=== PATIENT | female | born 1960 | race Caucasian/White ===

== ENCOUNTER → 2017-11-25 | Outpatient (CLI) | payer OTHER ==
--- NOTE | 2017-11-25 16:37 | CT ---
EXAMINATION TYPE: CT chest w con DATE OF EXAM: 11/25/2017 COMPARISON: 07/01/2017 HISTORY: Patient complains of cough at time of exam. Follow up for known lung nodules with history o f lung CA., History of breast cancer. CT DLP: 444.3 mGycm, Automated exposure control for dose reduction was used. CONTRAST: Performed injected with 100 mL of Isovue 300. TECHNIQUE: Axial images were obtained at 5 mm thick sections. Reconstructed images are reviewed on Ondax computer in the coronal plane. FINDINGS: Portion of the thyroid visualized is normal. No suspicious lung nodules or focal infiltrates are present. There is a minimal pneumonitis previousl y reported to have diminished over the interval. Suspicious interval growth of mass is not identified . No enlarged mediastinal or hilar adenopathy is evident. The ascending aorta diameter at the level o f the main pulmonary artery is 3.3 cm. The main pulmonary artery diameter at the bifurcation is 2.[address] sections are obtained through the upper abdomen. Abdomen is essentially unremarkable. Note is made of a splenule at the splenic hilum. Spondylosis is present. No suspicious lytic or sclerotic lesions are identified. IMPRESSIONS: 1. No suspicious areas suggestive for metastatic disease.
== END | disposition home or self-care (01) ==
LOC: RADCTMAIN 15:51
PROVIDERS: ATTEND Internal Medicine Hematology & Oncology
DX: C50.411 Malignant neoplasm of upper-outer quadrant of right female breast (principal); Z88.0 Allergy status to penicillin; Z88.1 Allergy status to other antibiotic agents
CPT/HCPCS: 71260; Q9967

== ENCOUNTER 2018-01-02 06:01 | Day surgery (SDC) | payer OTHER ==
[2017-12-31 11:50] VITALS: BMI 47.6
[~2018-01-02 06:01] MED LIST: DEXAMETHASONE SOD PHOSPHATE 10 MG/ML 1 ML VIAL IV ONE; HEPARIN SODIUM,PORCINE 5,000 UNIT/ML 1 ML VIAL SQ ONE; LACTATED RINGERS 1,000 ML IV SCH; LIDOCAINE 1% 20 ML VIAL (10MG/ML) FOR IV START INTRADERMA PRN; MIDAZOLAM 2 MG/2 ML VIAL IV PRN; MORPHINE SULFATE 4 MG/ML SYRINGE IV PRN; ONDANSETRON 4 MG/2 ML VIAL IVP ONE; SCOPOLAMINE 1.5MG/72HR PATCH TRANSDERM ONE; ceFAZolin IN SWFI 2 GM/20 ML SYRINGE IVP ONE
[2018-01-02 06:27] VITALS: RESP 16; TEMP 98.6
--- NOTE | 2018-01-02 07:41 | P.GSHP ---
History of Present Illness H&P Date: 01/02/18 Chief Complaint: Breast cancer Patient here to have her Port-A-Cath removed. She has completed therapy for breast cancer. The port was actually placed in [place]. She had no issues with port during that time. Past Medical History Past Medical History: Cancer, Hypertension, Osteoarthritis (OA), Thyroid Disorder Additional Past Medical History / Comment(s): BREAST CANCER History of Any Multi-Drug Resistant Organisms: None Reported Past Surgical History: Appendectomy, Breast Surgery, Cardiac Ablation, Section, Cholecystectomy Additional Past Surgical History / Comment(s): RIGHT LUMPECTOMY, RIGHT OVARY REMOVED , C SECTIONB X2 , PORT A CATH Past Anesthesia/Blood Transfusion Reactions: Postoperative Nausea & Vomiting ( PONV) Smoking Status: Former smoker - Past Family History Mother Family Medical History: No Reported History Medications and Allergies Home Medications Medication Instructions Recorded Confirmed Type Alendronate Sodium 70 mg PO TU 12/31/17 01/02/18 History Anastrozole [Arimidex] 1 mg PO DAILY 12/31/17 01/02/18 History Calcium Carbonate/Vitamin D3 2 each PO DAILY 12/31/17 01/02/18 History [Calcium 600-Vit D3 200 Tablet] Ergocalciferol (Vitamin D2) 50,000 unit PO TU 12/31/17 01/02/18 History [Vitamin D2] Ibuprofen [Motrin] 800 mg PO TID PRN 12/31/17 12/31/17 History LORazepam [Ativan] 1 mg PO HS PRN 12/31/17 01/02/18 History Levothyroxine Sodium [Synthroid] 75 mcg PO DAILY 12/31/17 01/02/18 History Lisinopril [Zestril] 10 mg PO DAILY 12/31/17 01/02/18 History Metoprolol Tartrate [Lopressor] 50 mg PO HS 12/31/17 01/02/18 History Oxybutynin Chloride [Ditropan] 5 mg PO DAILY 12/31/17 01/02/18 History Allergies Allergy/AdvReac Type Severity Reaction Status Date / Time ciprofloxacin [From Cipro] Allergy Rash/Hives Verified 01/02/18 06:14 Penicillins Allergy ANEMIA,JAUNDICE, Verified 01/02/18 06:14 LOW BLOOD COUNT Surgical - Exam Vital Signs Temp Pulse Resp BP Pulse Ox 98.6 F 65 16 117/72 96 01/02/18 06:25 01/02/18 06:25 01/02/18 06:25 01/02/18 06:25 01/02/18 06:25 Physical exam: General: Well-developed, well-nourished HEENT: Normocephalic, sclerae nonicteric Abdomen: Nontender, nondistended Extremities: No edema, left infraclavicular port noted Neuro: Alert and oriented Assessment and Plan (1) Breast cancer Narrative/Plan: Will proceed with Port-A-Cath removal at this time. Current Visit: Yes Status: Acute Code(s): C50.919 - MALIGNANT NEOPLASM OF UNSP SITE OF UNSPECIFIED FEMALE BREAST SNOMED Code(s): 461173285
[2018-01-02] MEDS ORDERED: KETAMINE 10 MG/ML 20 ML VIAL ONE (08:07)
[2018-01-02] MEDS ORDERED: MIDAZOLAM 2 MG/2 ML VIAL ONE (08:07)
[2018-01-02] MEDS ORDERED: fentaNYL (PF) 50 MCG/ML 2 ML AMP ONE (08:07)
[2018-01-02] MEDS ORDERED: PROPOFOL 10 MG/ML 20 ML VIAL IV ONE (08:07)
[2018-01-02] MEDS ORDERED: CLINDAMYCIN 150 MG/ML 4 ML VIAL IVPB ONE (08:10)
[2018-01-02] MEDS ORDERED: LIDOCAINE 1% (PF) 10 MG/ML (30 ML SDV) SQ ONE ×2 (08:14→08:30)
[2018-01-02] MEDS ORDERED: NALOXONE 0.4 MG/ML 1 ML VIAL IV PRN (08:41)
[2018-01-02] MEDS ORDERED: HYDROcodone/APAP 5-325MG 1 EACH TAB PO PRN (08:41)
--- NOTE | 2018-01-02 08:42 | P.OP ---
Date of Procedure: 01/02/18 Procedure(s) Performed: PREOPERATIVE DIAGNOSIS: Breast cancer POSTOPERATIVE DIAGNOSIS: Same PROCEDURE: Port-A-Cath removal SURGEON: Rita EBL: Minimal ANESTHESIA: Sedation COMPLICATIONS: None OPERATIVE PROCEDURE: Patient was placed in the supine position. The patient was sedated per anesthesia that time. The chest was prepped and draped in the usual sterile fashion. The skin was localized with Marcaine solution. The previous incision was re-incised using a scalpel. The port was easily excised using accommodation of blunt dissection sharp dissection and electrocautery. The subcutaneous tissues were reapproximated using 3-0 Vicryl sutures. The skin was reapproximated using 4-0 Monocryl sutures. Steri-Strips and sterile dressings were then applied. DISPOSITION: Stable to recovery room
[2018-01-02 09:20] VITALS: BP 103/63; PULSE 66
== END 2018-01-02 09:50 | disposition home or self-care (01) ==
LOC: OR 06:01
PROVIDERS: ATTEND Surgery
DX: C50.919 Malignant neoplasm of unspecified site of unspecified female breast (principal); E07.9 Disorder of thyroid, unspecified; I10 Essential (primary) hypertension; M19.90 Unspecified osteoarthritis, unspecified site; Z87.891 Personal history of nicotine dependence; F41.9 Anxiety disorder, unspecified; Z79.83 Long term (current) use of bisphosphonates; Z79.811 Long term (current) use of aromatase inhibitors; Z79.899 Other long term (current) drug therapy; Z88.0 Allergy status to penicillin; Z88.1 Allergy status to other antibiotic agents; Z85.3 Personal history of malignant neoplasm of breast
CPT/HCPCS: 36590; J2250; J1644; J1100; J2405; J2001; J3010; J2704

== ENCOUNTER 2018-02-18 11:49 | Day surgery (SDC) | payer OTHER ==
[2018-02-12 14:30] VITALS: BMI 43.2
--- NOTE | 2018-02-18 08:48 | HP ---
HISTORY AND PHYSICAL CHIEF COMPLAINT: Right knee pain. 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 She notes intermittent locking and giving way. She has had swelling and stiffness. She has tried medications in addition to therapy without much relief. PAST MEDICAL HISTORY: Significant for breast cancer, hypertension, and hypothyroidism. PAST SURGICAL HISTORY: Significant for appendectomy, , cholecystectomy. CURRENT MEDICATIONS: 1. Anastrozole. 2. Ibuprofen. 3. Levoxyl. 4. Lisinopril. 5. Metoprolol. She notes allergies to PENICILLIN and CIPROFLOXACIN. FAMILY HISTORY: Negative. SOCIAL HISTORY: Negative for current tobacco or alcohol use. REVIEW OF SYSTEMS: A 16 point review of systems significant for multiple joint pain. PHYSICAL EXAMINATION: The patient is approximately 4 foot 9, 223 pounds of endomorphic habitus. HEENT exam is nonfocal. Neck is supple. She has painless passive motion of her right hip. Straight leg raise is negative. Active motion right knee -6 to 105 degrees of flexion. She is tender about the medial joint line. She has mild effusion. Collaterals are stable, Tiana is negative, Pa's elicits medial pain. She does have genu varum alignment. Her distal neurovascular exam appears intact in the right lower extremity. Weightbearing notch lateral and Merchant views of the right knee obtained in the office show moderate medial compartment narrowing. IMPRESSION: 1. Right knee internal derangement with symptomatic medial meniscal tear. 2. Right knee medial compartment degenerative joint disease. 3. Increased body mass index. 4. History of breast cancer. RECOMMENDATIONS: I talked to the patient at length regarding her condition and treatment options. At this point, she remains quite symptomatic despite attempts at conservative measures. After a thorough discussion, she opts to proceed with surgery. We will plan to proceed with arthroscopic evaluation with probable partial medial meniscectomy in addition to possible medial femoral chondrectomy. Risks and benefits were discussed at length in layman's terms. We will likely perform that as an outpatient procedure. MMODL / IJN: [id number] /
[~2018-02-18 11:49] MED LIST changes: -DEXAMETHASONE SOD PHOSPHATE 10 MG/ML 1 ML VIAL IV ONE; -HEPARIN SODIUM,PORCINE 5,000 UNIT/ML 1 ML VIAL SQ ONE; -LACTATED RINGERS 1,000 ML IV SCH; -LIDOCAINE 1% 20 ML VIAL (10MG/ML) FOR IV START INTRADERMA PRN; -MIDAZOLAM 2 MG/2 ML VIAL IV PRN; -MORPHINE SULFATE 4 MG/ML SYRINGE IV PRN; -ONDANSETRON 4 MG/2 ML VIAL IVP ONE; -SCOPOLAMINE 1.5MG/72HR PATCH TRANSDERM ONE
[2018-02-18] MEDS ORDERED: LACTATED RINGERS 1,000 ML IV SCH (12:07)
[2018-02-18] MEDS ORDERED: DEXAMETHASONE SOD PHOSPHATE 10 MG/ML 1 ML VIAL IV ONE (12:07)
[2018-02-18] MEDS ORDERED: ONDANSETRON 4 MG/2 ML VIAL IVP ONE (12:07)
[2018-02-18] MEDS ORDERED: LIDOCAINE 1% 20 ML VIAL (10MG/ML) FOR IV START INTRADERMA ONE (12:55)
[2018-02-18] MEDS ORDERED: PROPOFOL 10 MG/ML 20 ML VIAL IV ONE (12:59)
[2018-02-18] MEDS ORDERED: SUCCINYLCHOLINE CHLORIDE 100 MG/5 ML SYR IV ONE (12:59)
[2018-02-18] MEDS ORDERED: fentaNYL (PF) 50 MCG/ML 2 ML AMP ONE (12:59)
[2018-02-18] MEDS ORDERED: MIDAZOLAM 2 MG/2 ML VIAL ONE (12:59)
[2018-02-18] MEDS ORDERED: LIDOCAINE 1% INJ 10MG/ML (20 ML MDV) ONE (12:59)
--- NOTE | 2018-02-18 14:04 | P.OP ---
Date of Procedure: 02/18/18 Preoperative Diagnosis: Right knee internal derangement Postoperative Diagnosis: Right knee posterior medial meniscal tear/grade 3 chondral injury distal medial femoral condyle/grade 3 chondral injury medial patella facet Procedure(s) Performed: Right knee arthroscopic partial medial meniscectomy/medial femoral chondrectomy/ patellar chondroplasty Anesthesia: LUIS ENRIQUE Surgeon: Richy Dailey Estimated Blood Loss (ml): 10 Pathology: none sent Condition: stable Disposition: PACU Indications for Procedure: The patient's a 57-year-old female who presents with persistent right knee pain and mechanical symptoms despite adequate conservative measures. A discussion of the risks and benefits of operative intervention versus continued conservative measures was made with patient. She opted to proceed with surgery. Operative risks to include infection, neurovascular injury, development of blood clots, possible incomplete resolution of symptoms, possible worsening symptoms and need for subsequent procedures was discussed. Informed consent was obtained. Operative Findings: As below Description of Procedure: The patient was brought to the operating room, and after induction of general anesthesia examined the right knee. Collaterals were stable, Tiana was negative, and posterior drawer was negative. The right lower extremity was prepped and draped in normal fashion. A superior lateral portal was made through a 3 mm skin incision superior and lateral to the patella. This was used for outflow. A moderate effusion was encountered. A lateral portal was made through a 5 mm vertical skin incision lateral to the patella tendon above the joint line. Diagnostic arthroscopy was performed. A medial portals made through a similar incision medial to the patella tendon above the joint line. On inspection of the medial compartment, a complex tear involving the posterior horn of the medial meniscus was noted in the white-white junction. This was debrided back to stable base with straight baskets and a motorized shaver. Grade 2-3 chondral changes were noted diffusely in the medial compartment. There was a grade 3 chondral defect involving the central distal portion medial femoral condyle with a loose chondral fragment. This was debrided back to stable base with a motorized shaver. On inspection of the notch, the anterior cruciate ligament appeared to be intact. On inspection of the lateral compartment, minimal degenerative changes were noted in the meniscus appeared intact. On inspection patellofemoral articulation, grade 3 chondral injury involving medial patella facet was noted. The loose chondral fragment was debrided back to a stable base with a motorized shaver. The gutters were clear debris. The knee was then thoroughly irrigated. The portals were closed with Steri-Strips. A sterile dressing was applied in addition to a compression stocking. The patient was then awoken from general anesthesia and transferred to recovery room in good condition. Blood loss was estimated at 10 mL. No complications were incurred.
[2018-02-18 14:07] VITALS: RESP 16; TEMP 97.4
[2018-02-18] MEDS: MORPHINE SULFATE 4 MG/ML SYRINGE IVP ONE ×2 (14:27→14:32)
[2018-02-18] MEDS: HYDROmorphone 0.5 MG/0.5 ML SYRINGE IVP PRN ×2 (14:41→14:46)
[2018-02-18] MEDS ORDERED: PROMETHAZINE INJ 25 MG/ML 1 ML VIAL IVPB ONE (15:16)
[2018-02-18 15:32] VITALS: BP 123/79; PULSE 61
== END 2018-02-18 16:37 | disposition home or self-care (01) ==
LOC: OR 11:49
PROVIDERS: ATTEND Orthopaedic Surgery
DX: S83.241A Other tear of medial meniscus, current injury, right knee, initial encounter (principal); S89.91XA Unspecified injury of right lower leg, initial encounter; X58.XXXA Exposure to other specified factors, initial encounter; I10 Essential (primary) hypertension; E03.9 Hypothyroidism, unspecified; Z85.3 Personal history of malignant neoplasm of breast; E66.01 Morbid (severe) obesity due to excess calories; Z68.41 Body mass index [BMI] 40.0-44.9, adult; Z79.811 Long term (current) use of aromatase inhibitors; Z79.890 Hormone replacement therapy; Z79.1 Long term (current) use of non-steroidal anti-inflammatories (NSAID); Z79.899 Other long term (current) drug therapy; Z88.1 Allergy status to other antibiotic agents; Z88.0 Allergy status to penicillin
CPT/HCPCS: 29881; J2270; J1100; J2550; J2405; J1170; J0690

== ENCOUNTER → 2018-04-14 | Outpatient (CLI) | payer OTHER ==
--- NOTE | 2018-04-14 10:05 | BD ---
EXAMINATION TYPE: Axial Bone Density DATE OF EXAM: 04/14/2018 CLINICAL HISTORY: Postmenopausal with hormonal replacement therapy Height: 56.5 inches Weight: 227 pounds FRAX RISK QUESTIONS: Alcohol (3 or more units per day): no Family History (Parent hip fracture): no Glucocorticoids (More than 3mos): inhaler not used on regular basis (Ex: prednisone, prednisolone, methylprednisolone, dexamethasone, and hydrocortisone). History of Fracture in Adulthood: unsure, possibly ankle Secondary Osteoporosis: 1. Type 1 Diabetes: no 2. Hyperthyroidism: unsure 3. Menopause before 45: no 4. Malnutrition: no 5. Chronic liver disease: no Rheumatoid Arthritis: no Current Tobacco Use: no RISK FACTORS HISTORY OF: Family History of Osteoporosis: no Active: yes Diet low in dairy products/other sources of calcium: possibly one serving a day Postmenopausal woman: yes Take estrogen and/or progesterone medications: no Lost more than 2 inches in height since high school: unsure Frequent falls: no Poor Health: somewhat Hyperparathyroidism: no Adrenal Insufficiency: no MEDICATIONS: Prednisone or other steroids: inhaler not used on regular basis How Long: off & on Thyroid Medications: yes Which medication: unsure How Long: off & on -15-17 years Osteoporosis Medications: yes Which medication: unsure How Long: since breast CA diagnosis 2 years ago Additional Medications: calcium & Vitamin D ; hormone lorelei Additional History: hx breast CA; "fatty liver" EXAM MEASUREMENTS: Bone mineral densitometry was performed using the Lorena Gaxiola System. Bone mineral density as measured about the Lumbar spine is: ----- L1-L4(G/cm2): 1.222 T Score Values are as follows: ----- L2: 0.4 ----- L3: 0.0 ----- L4: 0.3 ----- L1-L4: 0.3 Bone mineral density not previously done at this facility; done elsewhere Bone mineral density about the R hip (g/cm2): 0.851 Bone mineral density about the L hip (g/cm2): 0.828 T Score values are as follows: -----R Neck: -1.3 -----L Neck: -1.5 -----R Total: -0.5 -----L Total: -0.3 Bone mineral density not previously done at this facility; done elsewhere IMPRESSION: Osteopenia (T Score between -2.5 and -1). There is slightly increased risk of fracture and the patient may be considered for treatment. Re-Screen 2-5 years. NOTE: T-SCORE=SD OF THE YOUNG ADULT MEAN.
== END | disposition home or self-care (01) ==
LOC: RADBDWWP 07:21
PROVIDERS: ATTEND Internal Medicine Hematology & Oncology
DX: C50.411 Malignant neoplasm of upper-outer quadrant of right female breast (principal); M85.80 Other specified disorders of bone density and structure, unspecified site; Z88.1 Allergy status to other antibiotic agents; Z88.0 Allergy status to penicillin; Z79.890 Hormone replacement therapy; Z78.0 Asymptomatic menopausal state
CPT/HCPCS: 77080

== ENCOUNTER → 2018-07-07 | Outpatient (CLI) | payer OTHER ==
--- NOTE | 2018-07-08 14:06 | MR ---
EXAMINATION TYPE: MR knee LT wo con DATE OF EXAM: 07/07/2018 COMPARISON: Outside radiographs of the left knee dated 06/11/2018 HISTORY: Left knee pain TECHNIQUE: Multiplanar, multisequence imaging of the left knee is performed without IV contrast. FINDINGS: MEDIAL MENISCUS: There is a small radial tear of the free edge of the posterior horn of the medial me niscus with blunting near the root. The anterior horn and meniscal body appear intact. There is assoc iated 1 to 2 mm meniscal extrusion with no parameniscal cyst. LATERAL MENISCUS: There is increased signal of the anterior horn of the lateral meniscus extending to the anterior root indicative of meniscal degeneration as there is no continuity with an articular zapata rface. CRUCIATE LIGAMENTS: The posterior cruciate ligament is intact. There are only diminutive high signal fibers of the anterior cruciate ligament remaining although they maintain a normal orientation. COLLATERAL LIGAMENTS: Minimal high signal is seen superficial to the medial collateral ligament sugge stive of mild medial collateral ligament bursitis. EXTENSOR MECHANISM: Visualized quadriceps and patellar tendons are intact. EFFUSION: There is a small suprapatellar joint effusion with a frond-like intra-articular region of villous protuberance suggesting lipoma arborescens. Given the appearance small complex joint effusion with synovitis is considered less likely. POPLITEAL CYST: No popliteal/mccann cyst. TRICOMPARTMENT SPACES/CARTILAGE: Evaluation of the medial lateral compartment cartilage is somewhat l imited given spatial resolution is decreased due to patient body habitus. There is only mild signal h eterogeneity of the patellofemoral cartilage without focal defect. There appears to be medial joint s pace narrowing and at least a 4 mm partial-thickness chondral defect of the weightbearing surface of the medial femoral condyle at its anterior margin with other generalized medial compartment cartilagi nous thinning. Lateral compartment cartilage is grossly unremarkable although limited as described ab ove. BONE MARROW SIGNAL: No focal abnormal marrow signal is appreciated. IMPRESSION: 1. Small radial tear of the posterior horn of the medial meniscus with 1 to 2 mm associated meniscal extrusion. 2. Partial-thickness anterior cruciate ligament tear and high-grade sprain with high signal throughou t the remaining fibers. 3. Findings suggesting lipoma arborescens versus less likely small complex joint effusion with synovi tis. 4. Myxoid degeneration of the lateral meniscus. 5. Mild signal superficial to the medial collateral ligament without medial collateral ligament disco ntinuity compatible with mild MCL bursitis.
== END | disposition home or self-care (01) ==
LOC: RADMRIMAIN 12:59
PROVIDERS: ATTEND Orthopaedic Surgery
DX: S83.242A Other tear of medial meniscus, current injury, left knee, initial encounter (principal); S83.512A Sprain of anterior cruciate ligament of left knee, initial encounter

== ENCOUNTER → 2018-07-28 | Outpatient (CLI) | payer OTHER ==
[2018-07-28 17:47] LABS: Basophils # (A) 0.1 k/uL (0-0.2); Basophils % (A) 1 %; Eosinophils # (A) 0.4 k/uL (0-0.7); Eosinophils % (A) 5 %; HCT 40.2 % (34.0-46.0); HGB 13.3 gm/dL (11.4-16.0); Lymphocytes # (A) 1.2 k/uL (1.0-4.8); Lymphocytes % (A) 16 %; MCH 30.2 pg (25.0-35.0); MCV 91.6 fL (80.0-100.0); Mean Platelet Volume 7.3; Monocytes # (A) 0.3 k/uL (0-1.0); Monocytes % (A) 5 %; Neutrophils # (A) 5.5 k/uL (1.3-7.7); Neutrophils % (A) 73 %; Platelet Count 325 k/uL (150-450); RBC 4.39 m/uL (3.80-5.40); RDW 13.6 % (11.5-15.5); WBC 7.5 k/uL (3.8-10.6)
[2018-07-28 17:52] LABS: Potassium 4.1 mmol/L (3.5-5.1)
== END | disposition home or self-care (01) ==
LOC: LABPAT 17:20
PROVIDERS: ATTEND Orthopaedic Surgery
DX: Z01.812 Encounter for preprocedural laboratory examination (principal); M23.92 Unspecified internal derangement of left knee
CPT/HCPCS: 80051; 85025

== ENCOUNTER → 2018-07-28 | Outpatient (CLI) | payer OTHER ==
[2018-07-29 04:02] LABS: T4, Free (Free Thyroxine) 1.2 ng/dL (0.80-1.80)
== END ==
LOC: LABWHC1 17:18
PROVIDERS: ATTEND Family Medicine
DX: E03.9 Hypothyroidism, unspecified (principal); E55.9 Vitamin D deficiency, unspecified
CPT/HCPCS: 36415; 82306; 84439; 84443

== ENCOUNTER → 2018-08-05 | Outpatient (CLI) | payer OTHER ==
--- NOTE | 2018-08-07 09:30 | MM ---
Reason for exam: additional evaluation requested from prior study. Last mammogram was performed 1 year and 3 months ago. History: Patient is postmenopausal and has history of breast cancer at age 55. Ultrasound-guided core biopsy of the right breast, January 24, 2016. Lumpectomy of the right breast, 2016. Benign stereotactic core biopsy of the right breast, November 12, 2001. Core biopsy of the right breast. Chemotherapy. Radiation therapy of the right breast. Taking antineoplastic for 2 years beginning at age 55. Physical Findings: Nurse did not find any significant physical abnormalities on exam. MG Diagnostic Mammo w CAD ASHER Bilateral CC and MLO view(s) were taken. Prior study comparison: April 24, 2017, mammogram. July 24, 2016, right breast mammogram. There are scattered fibroglandular densities. Finding: Architectural distortion in the upper outer quadrant of the right breast consistent with known lumpectomy changes. Previous mammotome biopsy in the right breast. Asymmetric breast tissue in the right breast in stable. There is no discrete abnormality. These results were verbally communicated with the patient and result sheet given to the patient on 08/05/18. ASSESSMENT: Benign, BI-RAD 2 RECOMMENDATION: Follow-up diagnostic mammogram of both breasts in 1 year.
== END | disposition home or self-care (01) ==
LOC: RADMAMWWP 10:05
PROVIDERS: ATTEND Family Medicine
DX: C50.911 Malignant neoplasm of unspecified site of right female breast (principal)
CPT/HCPCS: 77066

== ENCOUNTER → 2018-08-13 | Outpatient (CLI) | payer OTHER ==
--- NOTE | 2018-08-13 13:46 | NM ---
EXAMINATION TYPE: NM bone scan whole body DATE OF EXAM: 08/13/2018 COMPARISON: NONE HISTORY: C50.411 Breast Cancer, M54.9 Back Pain Delayed whole-body scanning was performed following the injection of 24.7 mCi Tc 99m MDP. Images acq uired 3 hours post injection. FINDINGS: No scintigraphic evidence to suggest osseous metastatic disease. Severe degenerative changes of mid t horacic spine, shoulders and bilateral knees. IMPRESSION: No scintigraphic evidence to suggest metastatic disease at this time.
== END | disposition home or self-care (01) ==
LOC: RADNMMAIN 09:50
PROVIDERS: ATTEND Internal Medicine Hematology & Oncology
DX: C50.411 Malignant neoplasm of upper-outer quadrant of right female breast (principal)
CPT/HCPCS: 78306; A9503

== ENCOUNTER → 2018-09-03 | Outpatient (CLI) | payer OTHER ==
[2018-09-03 14:16] LABS: Basophils # (A) 0.1 k/uL (0-0.2); Basophils % (A) 1 %; Eosinophils # (A) 0.3 k/uL (0-0.7); Eosinophils % (A) 5 %; HCT 40.6 % (34.0-46.0); HGB 13.3 gm/dL (11.4-16.0); Lymphocytes # (A) 1.1 k/uL (1.0-4.8); Lymphocytes % (A) 18 %; MCHC 32.7 g/dL (31.0-37.0); MCV 91.9 fL (80.0-100.0); Mean Platelet Volume 7.1; Monocytes # (A) 0.3 k/uL (0-1.0); Monocytes % (A) 5 %; Neutrophils # (A) 4.1 k/uL (1.3-7.7); Neutrophils % (A) 69 %; Platelet Count 309 k/uL (150-450); RBC 4.42 m/uL (3.80-5.40); RDW 13.6 % (11.5-15.5); WBC 5.8 k/uL (3.8-10.6)
[2018-09-03 14:50] LABS: Potassium 4.8 mmol/L (3.5-5.1)
== END | disposition home or self-care (01) ==
LOC: LABPAT 12:38
PROVIDERS: ATTEND Orthopaedic Surgery
DX: Z01.812 Encounter for preprocedural laboratory examination (principal); M23.92 Unspecified internal derangement of left knee
CPT/HCPCS: 36415; 80051; 85025

== ENCOUNTER 2018-09-11 08:39 | Day surgery (SDC) | payer OTHER ==
[2018-09-09 11:01] VITALS: BMI 45.9
--- NOTE | 2018-09-10 11:23 | HP ---
HISTORY AND PHYSICAL CHIEF COMPLAINT: Left knee pain. HISTORY OF PRESENT ILLNESS: The patient is a 58-year-old female who presents with progressive left knee pain, worsening over the past several months. She notes medial knee pain with weightbearing activities. She is also having night symptoms. She notes intermittent catching and giving way. She has been taking ibuprofen with only partial temporary relief. PAST MEDICAL HISTORY: Significant for breast cancer, hypothyroidism, hypertension. PAST SURGICAL HISTORY: Significant for appendectomy, cholecystectomy, and section. CURRENT MEDICATIONS: 1. Anastrozole. 2. Ibuprofen. 3. Levoxyl. 4. Lisinopril. 5. Metoprolol. 6. Ultram. ALLERGIES: She has allergies to PENICILLIN and CIPROFLOXACIN. FAMILY HISTORY: Family history is negative. SOCIAL HISTORY: Social history is negative for current tobacco or alcohol use. REVIEW OF SYSTEMS: Sixteen-point review of systems otherwise is reviewed and is noncontributory. PHYSICAL EXAMINATION: On examination, the patient is approximately 4 feet 9 inches, 220 pounds of endomorphic habitus. HEENT exam is nonfocal. Neck is supple. She has painless passive motion of her left hip. Straight leg raise is negative. Active motion left knee -6 to 115 degrees of flexion. She has mild effusion. She is tender about the medial joint line. Collaterals are stable, Tiana's negative, Pa's elicits medial pain. Her distal neurovascular exam appears intact in the left lower extremity. MRI report left knee 08/06/2018 shows evidence of a posterior medial meniscal tear along with a medial femoral condyle chondral defect. IMPRESSION: 1. Left knee internal derangement with symptomatic medial meniscal tear. 2. Left knee internal derangement, possible medial femoral condyle chondral injury. RECOMMENDATIONS: I talked to the patient at length regarding her condition and treatment options. At this point, she is having persistent symptoms of pain and mechanical symptoms that limit her despite conservative measures. After thorough discussion, she opts to proceed with surgery. We will plan to proceed with arthroscopic evaluation with possible partial medial meniscectomy in addition of possible microfracture of the medial femoral condyle. Risks and benefits were discussed at length in layman's terms. We will likely perform that as an outpatient procedure. MMODL / IJN: [id number] /
[2018-09-11] MEDS ORDERED: DEXAMETHASONE SOD PHOS (MDV) 100 MG/10 ML VIAL IV ONE (09:14)
[2018-09-11] MEDS ORDERED: ONDANSETRON 4 MG/2 ML VIAL IVP ONE (09:14)
[2018-09-11] MEDS ORDERED: LACTATED RINGERS 1,000 ML IV ONE (09:14)
[2018-09-11] MEDS ORDERED: fentaNYL (PF) 50 MCG/ML 2 ML AMP ONE (09:57)
[2018-09-11] MEDS ORDERED: SUCCINYLCHOLINE CHLORIDE 100 MG/5 ML SYR IV ONE (09:57)
[2018-09-11] MEDS ORDERED: LIDOCAINE 1% INJ 10MG/ML (20 ML MDV) ONE (09:57)
[2018-09-11] MEDS ORDERED: PROPOFOL 10 MG/ML 20 ML VIAL IV ONE (09:57)
[2018-09-11] MEDS ORDERED: MIDAZOLAM 2 MG/2 ML VIAL ONE (09:57)
[2018-09-11] MEDS ORDERED: EPINEPHrine (PF) 1 ML in SODIUM CHLORIDE 0.9% IRRIGATIO 3,000 ML IRRIGATION ONE ×4 (10:00)
--- NOTE | 2018-09-11 10:49 | P.OP ---
Date of Procedure: 09/11/18 Preoperative Diagnosis: Left knee internal derangement Postoperative Diagnosis: Left knee posterior medial meniscal tear Procedure(s) Performed: Left knee arthroscopic partial medial meniscectomy Anesthesia: DAMIÁNA Surgeon: Richy Dailey Estimated Blood Loss (ml): 10 Pathology: none sent Condition: stable Disposition: PACU Indications for Procedure: The patient's a 58-year-old female presents with progressive left knee pain and mechanical symptoms despite conservative measures. A discussion of the risks and benefits of operative intervention versus continued conservative measures was made with patient. She opted proceed with surgery. Operative risks to include infection, neurovascular injury, development of blood clots, possible incomplete resolution symptoms, possible worsening symptoms and need for subsequent procedures was discussed. Informed consent was obtained. Operative Findings: As below Description of Procedure: The patient was brought to the operating room, and after induction of general anesthesia examined the left knee. Collaterals were stable, Tiana was negative, and posterior drawer was negative. The left lower extremity was prepped and draped in a normal fashion. A superior lateral portal was made through a 3 mm skin incision superior and lateral to the patella. This was used for outflow. A lateral portal was made through a 5 mm vertical skin incision lateral to the patella tendon above the joint line. Diagnostic arthroscopy was performed. On inspection of the medial compartment there was a posterior medial meniscal tear in the white-white junction. This was debrided back to stable base with straight baskets and a motorized shaver. Grade 2-3 chondral changes were noted diffusely in the medial compartment. On inspection of the notch, the anterior cruciate ligament appeared to be intact. On inspection of the lateral compartment no significant cartilage or meniscal pathology was noted.. On inspection of the patellofemoral articulation there were grade 2 chondral changes however no loose chondral fragments. The gutters were clear debris. The knee was then thoroughly irrigated. The portals were closed with Steri-Strips. A sterile dressing was applied in addition to a compression stocking. The patient was awoken from general anesthesia and transferred to recovery room in good condition. Blood loss was estimated at 10 mL. No complications were incurred.
[2018-09-11] MEDS ORDERED: HYDROmorphone 0.5 MG/0.5 ML SYRINGE IVP ONE ×4 (10:50→11:17)
[2018-09-11 10:51] VITALS: TEMP 97.4
[2018-09-11] MEDS ORDERED: KETOROLAC 30 MG/ML 1 ML VIAL IVP ONE (10:56)
[2018-09-11 11:47] VITALS: RESP 16
[2018-09-11] MEDS ORDERED: HYDROcodone/APAP 5-325MG 1 EACH TAB PO ONE (11:51)
[2018-09-11 12:10] VITALS: BP 129/70; PULSE 61
== END 2018-09-11 12:35 | disposition home or self-care (01) ==
LOC: OR 08:39
PROVIDERS: ATTEND Orthopaedic Surgery
DX: S83.242A Other tear of medial meniscus, current injury, left knee, initial encounter (principal); X58.XXXA Exposure to other specified factors, initial encounter; E03.9 Hypothyroidism, unspecified; I10 Essential (primary) hypertension; G47.33 Obstructive sleep apnea (adult) (pediatric); Z99.89 Dependence on other enabling machines and devices; E66.01 Morbid (severe) obesity due to excess calories; Z68.42 Body mass index [BMI] 45.0-49.9, adult; Z85.3 Personal history of malignant neoplasm of breast; Z79.1 Long term (current) use of non-steroidal anti-inflammatories (NSAID); Z79.890 Hormone replacement therapy; Z79.891 Long term (current) use of opiate analgesic; Z79.899 Other long term (current) drug therapy; Z88.1 Allergy status to other antibiotic agents; Z88.0 Allergy status to penicillin
CPT/HCPCS: 29881; J2250; J2405; J0171; J2001; J3010; J1885; J1100; J0330; J2704; J1170; J0690

== ENCOUNTER → 2019-02-15 | Outpatient (CLI) | payer OTHER | END | disposition home or self-care (01) | LOC: DBWHC3 12:58 | PROVIDERS: ATTEND Family Medicine | DX: Z53.9 Procedure and treatment not carried out, unspecified reason (principal) ==

== ENCOUNTER → 2019-02-16 | Outpatient (CLI) | payer OTHER ==
[2019-02-16 13:15] VITALS: BP 113/65; PULSE 16; RESP 16; TEMP 98; BMI 52.4
--- NOTE | 2019-02-16 14:32 | P.HPBAR ---
Bariatric H&P - History & Physicial H&P Date: 02/16/19 History & Physicial: Visit/CC: New PT Patient initial contact: Initial weight: 107.983 kg Initial weight in pounds: 238.06 Height: 4 ft 8.5 in Initial BMI: 52.4 Last weight: Current weight: 107.983 kg Current weight in pounds: 238.06 Current BMI: 52.4 [place] body weight (based on NIH guidelines): 37.421 kg Excess body weight loss: 0.0% The patient is a 58 year-old F who presents for Bariatric Assessment. Patient presents for evaluation of surgical weight loss procedures. The patient has suffered with her weight for the last 20 years ago or so. She has tried a variety of different weight loss methods. She suffers from chronic knee pain, hypertension, sleep apnea, arrhythmia, and personal history of breast cancer. Patient interested in sleeve gastrectomy at this time. Does have some intermittent dysphagia symptoms. Seems to be in the proximal esophagus. No history of DVT. She has 2 cousins that had a sleeve gastrectomy and have done well. Patient requires 6 month supervised weight loss. Review of Systems The patient denies any acute changes in vision or hearing, no dysphagia or odynophagia, no chest pain or shortness of breath, no dysuria or hematuria, no headache, no runny nose, no rectal bleeding or melena, no unexplained weight loss Past Medical History Past Medical History: Cancer, Hypertension, Osteoarthritis (OA), Thyroid D isorder Additional Past Medical History / Comment(s): BREAST CANCER History of Any Multi-Drug Resistant Organisms: None Reported Past Surgical History: Appendectomy, Breast Surgery, Cardiac Ablation, Section, Cholecystectomy Additional Past Surgical History / Comment(s): RIGHT LUMPECTOMY, RIGHT OVARY REMOVED , C SECTIONB X2 , PORT A CATH Past Anesthesia/Blood Transfusion Reactions: Postoperative Nausea & Vomiting (PONV) Past Psychological History: Anxiety Smoking Status: Former smoker Past Alcohol Use History: Occasional Additional Past Alcohol Use History / Comment(s): STARTED SMOKING AT AGE 15 QUIT 1988 SMOKED 1PPD Past Drug Use History: None Reported - Past Family History Mother Family Medical History: No Reported History Surgical - Exam Vital Signs Temp Pulse Resp BP 98 F 16 L 16 113/65 02/16/19 13:11 02/16/19 13:11 02/16/19 13:11 02/16/19 13:11 Physical exam: General: Well-developed, well-nourished HEENT: Normocephalic, sclerae nonicteric Abdomen: Nontender, nondistended Extremities: No edema Neuro: Alert and oriented Bariatric Assessment & Plan (1) Morbid obesity with BMI of 50.0-59.9, adult Narrative/Plan: Options of sleeve gastrectomy and gastric bypass with their associated risks and benefits discussed in detail with the patient. She remains most interested in sleeve gastrectomy at this time. She states that she will consider that gastric bypass further and notify me if she has a change of heart. Will obtain preoperative labs. Continue supervised weight loss program. Will check barium swallow given her recent complaints of dysphagia. She will require preoperative EGD to be performed proximally 2 months preop. Status: Acute Bariatric Checklist Checklist: Plan: Checklist: EGD: 1. Hiatal hernia: 2. H. Pylori: HgbA1c: Vitamin D: Smoking: Former smoker Primary care physician referral: Dr. Vargas Psychiatry clearance: Cardiology clearance: Sleep study: Diet journal: VTE risk score: VTE risk level: Rehab needs at discharge:
[2019-02-16 15:05] LABS: HGB 12.4 gm/dL (11.4-16.0); MCH 28.6 pg (25.0-35.0); MCHC 31.9 g/dL (31.0-37.0); MCV 89.6 fL (80.0-100.0); Mean Platelet Volume 7.6; Platelet Count 373 k/uL (150-450); RBC 4.35 m/uL (3.80-5.40); RDW 13.8 % (11.5-15.5); WBC 7.6 k/uL (3.8-10.6)
[2019-02-17 03:47] LABS: Hemoglobin A1C 5.4 % (4.0-6.0)
[2019-02-17 04:47] LABS: Vitamin D 25 Hydroxy 37.2 ng/mL (30.0-100.0)
[2019-02-17 05:40] LABS: African American GFR (CKD) 47.5 (60.0-200.0); Albumin 4.1 g/dL (3.80-4.90); Albumin/Globulin Ratio 2.05 (1.60-3.17); Anion Gap 13.7 mmol/L (4.00-12.00); BUN/Creat Ratio 15.71 Ratio (12.00-20.00); Calcium 9.7 mg/dL (8.7-10.3); Carbon Dioxide 18.3 mmol/L (21.6-31.8); Potassium 4.3 mmol/L (3.5-5.5); Total Bilirubin 0.2 mg/dL (0.3-1.2); Total Protein 6.1 g/dL (6.2-8.2)
== END ==
LOC: BARWHC3 12:50
PROVIDERS: ATTEND Surgery
DX: E66.01 Morbid (severe) obesity due to excess calories (principal); E55.9 Vitamin D deficiency, unspecified; I11.9 Hypertensive heart disease without heart failure; G47.33 Obstructive sleep apnea (adult) (pediatric); Z01.818 Encounter for other preprocedural examination; Z68.43 Body mass index [BMI] 50.0-59.9, adult; Z87.891 Personal history of nicotine dependence
CPT/HCPCS: 84425; 80053; 82607; 83540; 85027; 82306; 83036; 93005; 36415; G0463; 99201

== ENCOUNTER 2019-04-08 12:34 | Emergency (ER) | payer OTHER ==
[2019-04-08 12:45] VITALS: BP 138/76; PULSE 59; RESP 16; TEMP 97.8
[2019-04-08] MEDS ORDERED: diphenhydrAMINE 50 MG CAP PO STA (13:45)
[2019-04-08] MEDS ORDERED: methylPREDNISolone SOD SUCCI 125 MG/2 ML VIAL IM ONE (13:45)
--- NOTE | 2019-04-08 13:54 | ED ---
General Adult HPI - General Chief complaint: Skin/Abscess/Foreign Body Stated complaint: rash Time Seen by Provider: 04/08/19 12:41 Source: EMS, RN notes reviewed Mode of arrival: EMS Limitations: no limitations - History of Present Illness Initial comments: 58-year-old female with a past medical history of breast cancer, hypertension, thyroid disorder presents to the emergency department for a chief complaint of rash. Patient states this started last night. States it started on her chest but is now on her arms and palms. States it is mildly pruritic. Patient denies any sexual activity. Denies t recent travel. Denies any known bites. Denies fevers or chills. Denies any painful lesions. Denies any chest pain or shortness of breath. Denies abdominal pain nausea vomiting diarrhea. Patient has no other symptoms besides this mildly pruritic rash. Denies any new detergents or soaps. Denies any new medications.Patient has no other complaints at this time including shortness of breath, chest pain, abdominal pain, nausea or vomiting, headache, or visual changes. - Related Data Home Medications Medication Instructions Recorded Confirmed Alendronate Sodium 70 mg PO TU 12/31/17 02/16/19 Anastrozole [Arimidex] 1 mg PO DAILY 12/31/17 02/16/19 Calcium Carbonate/Vitamin D3 2 each PO DAILY 12/31/17 02/16/19 [Calcium 600-Vit D3 200 Tablet] Ergocalciferol (Vitamin D2) 50,000 unit PO WEBER 12/31/17 02/16/19 [Vitamin D2] Ibuprofen [Motrin] 800 mg PO TID PRN 12/31/17 02/16/19 LORazepam [Ativan] 1 mg PO HS PRN 12/31/17 02/16/19 Lisinopril [Zestril] 10 mg PO DAILY 12/31/17 02/16/19 Metoprolol Tartrate [Lopressor] 50 mg PO HS 12/31/17 02/16/19 Oxybutynin Chloride [Ditropan] 5 mg PO DAILY 12/31/17 02/16/19 Levothyroxine Sodium 100 mcg PO DAILY 09/09/18 02/16/19 Loratadine [Claritin] 10 mg PO DAILY 09/09/18 02/16/19 traMADol HCL [Ultram] 50 mg PO TID PRN 09/09/18 02/16/19 Previous Rx's Medication Instructions Recorded predniSONE 50 mg PO DAILY #5 tablet 04/08/19 Allergies Allergy/AdvReac Type Severity Reaction Status Date / Time ciprofloxacin [From Cipro] Allergy Rash/Hives Verified 02/16/19 14:50 Penicillins Allergy ANEMIA,JAUNDICE, Verified 02/16/19 14:50 LOW BLOOD COUNT Review of Systems ROS Statement: Those systems with pertinent positive or pertinent negative responses have been documented in the HPI. ROS Other: All systems not noted in ROS Statement are negative. Past Medical History Past Medical History: Cancer, Hypertension, Osteoarthritis (OA), Thyroid Diso rder Additional Past Medical History / Comment(s): BREAST CANCER History of Any Multi-Drug Resistant Organisms: None Reported Past Surgical History: Appendectomy, Breast Surgery, Cardiac Ablation, Section, Cholecystectomy Additional Past Surgical History / Comment(s): RIGHT LUMPECTOMY, RIGHT OVARY REMOVED , C SECTIONB X2 , PORT A CATH Past Anesthesia/Blood Transfusion Reactions: Postoperative Nausea & Vomiting (PONV) Past Psychological History: Anxiety Smoking Status: Former smoker Past Alcohol Use History: Occasional Past Drug Use History: None Reported - Past Family History Mother Family Medical History: No Reported History General Exam Limitations: no limitations General appearance: alert, in no apparent distress Head exam: Present: atraumatic, normocephalic, normal inspection Eye exam: Present: normal appearance, PERRL, EOMI. Absent: scleral icterus, conjunctival injection, periorbital swelling ENT exam: Present: normal exam, mucous membranes moist Neck exam: Present: normal inspection, full ROM. Absent: tenderness, meningismus, lymphadenopathy Respiratory exam: Present: normal lung sounds bilaterally. Absent: respiratory distress, wheezes, rales, rhonchi, stridor Cardiovascular Exam: Present: regular rate, normal rhythm, normal heart sounds. Absent: systolic murmur, diastolic murmur, rubs, gallop, clicks Neurological exam: Present: alert Psychiatric exam: Present: normal affect, normal mood Skin exam: Present: rash (Erythematous macular raised rash noted to chest arms and palms. Nontender. Blanching. No excoriations, no retracting.) Course Vital Signs 04/08/19 12:42 Temperature 97.8 F Pulse Rate 59 L Respiratory 16 Rate Blood Pressure 138/76 O2 Sat by Pulse 99 Oximetry Medical Decision Making - Medical Decision Making 58-year-old female presents for chief complaint of rash. This started last night and has worsened. Started on the chest and is now on the arms and palms bilaterally. There are small raised erythematous macular lesions. Denies fevers or chills. Negative Nikolsky sign. Denies any constitutional symptoms whatsoever. Admits to mild pruritus. Denies any new detergents, soaps, medications. Denies chest pain or shortness of breath. Discussed with patient that at this time we will try steroids for this nonspecific rash. Discussed that she does need to follow up with dermatology as well as primary care. Discussed return parameters including constitutional symptoms in depth. Disposition Clinical Impression: Rash Disposition: HOME SELF-CARE Condition: Good Instructions (If sedation given, give patient instructions): Acute Rash (ED) Additional Instructions: Please take steroid as directed. Please follow up with dermatology as well as primary care as soon as possible. If you have any worsening symptoms, fevers or any other concerning symptoms return to the emergency department immediately. Prescriptions: predniSONE 50 mg PO DAILY #5 tablet Is patient prescribed a controlled substance at d/c from ED?: No Referrals: Janine Vargas MD [Primary Care Provider] - 1-2 days Time of Disposition: 13:52
== END 2019-04-08 13:57 | disposition home or self-care (01) ==
LOC: EC 12:34
DX: R21 Rash and other nonspecific skin eruption (principal); I10 Essential (primary) hypertension; F41.9 Anxiety disorder, unspecified; E07.9 Disorder of thyroid, unspecified; Z79.890 Hormone replacement therapy; Z79.899 Other long term (current) drug therapy; Z88.0 Allergy status to penicillin; Z88.1 Allergy status to other antibiotic agents; Z87.891 Personal history of nicotine dependence; Z85.3 Personal history of malignant neoplasm of breast
CPT/HCPCS: 99283; 96372; J2930

== ENCOUNTER 2019-10-15 09:12 | Day surgery (SDC) | payer OTHER ==
[2019-10-14 12:02] VITALS: BMI 43.2
[~2019-10-15 09:12] MED LIST changes: +DEXAMETHASONE SOD PHOSPHATE 10 MG/ML 1 ML VIAL IV ONE; +KETOROLAC 30 MG/ML 1 ML VIAL IVP SCH; +LACTATED RINGERS 1,000 ML IV SCH; +LIDOCAINE 1% 20 ML VIAL (10MG/ML) FOR IV START INTRADERMA PRN; +METOCLOPRAMIDE 5 MG/ML 2 ML VIAL IVP PRN; +ONDANSETRON 4 MG/2 ML VIAL IVP ONE; -ceFAZolin IN SWFI 2 GM/20 ML SYRINGE IVP ONE
[2019-10-15] MEDS ORDERED: LACTATED RINGERS 1,000 ML IV ONE (09:45)
--- NOTE | 2019-10-15 11:33 | P.OP ---
Date of Procedure: 10/15/19 Preoperative Diagnosis: Status post external fixation right open ankle dislocation/irritating hardware Postoperative Diagnosis: Same Procedure(s) Performed: Removal external fixator right ankle/examination right ankle under anesthesia with fluoroscopy Anesthesia: LUIS ENRIQUE Surgeon: Richy Dailey Estimated Blood Loss (ml): 5 Pathology: none sent Condition: stable Disposition: PACU Indications for Procedure: Patient is a 59-year-old female who previously underwent external fixation of her right open ankle dislocation 3 months ago presents with stiffness and pain secondary to retention of her fixator. A discussion of the risks and benefits of removal was made with patient. She opted to proceed. Risks to include possible need for subsequent procedures was discussed. Informed consent was obtained. Operative Findings: As below Description of Procedure: The patient was brought to the operating room, and after induction of general anesthesia the pin sites were cleaned with Betadine. The frame was cut off with a thermal cutter helper. The pins were removed with a drill. The ankle was then evaluated under fluoroscopy and was felt to be stable. A sterile dressing was then applied. The patient was awoken from general anesthesia and transferred to recovery room in good condition. Blood loss was less than 5 mL. No complications were incurred.
[2019-10-15 11:41] VITALS: TEMP 98
--- NOTE | 2019-10-15 11:46 | FL ---
Fluoroscopy INDICATION: Pain FINDINGS: Fluoroscopy time: 2 seconds. Images obtained: 1. IMPRESSIONS: 1. Documentation of fluoroscopy.
[2019-10-15] MEDS: HYDROmorphone 0.5 MG/0.5 ML SYRINGE IVP PRN ×2 (11:51→12:10)
--- NOTE | 2019-10-15 11:56 | FL ---
Fluoroscopy INDICATION: Pain FINDINGS: Fluoroscopy time: 2 seconds. Images obtained: 1. IMPRESSIONS: 1. Documentation of fluoroscopy.
[2019-10-15] MEDS ORDERED: fentaNYL (PF) 50 MCG/ML 2 ML AMP ONE (12:43)
[2019-10-15] MEDS ORDERED: LIDOCAINE 1% INJ 10MG/ML (20 ML MDV) ONE (12:43)
[2019-10-15] MEDS ORDERED: PROPOFOL 10 MG/ML 20 ML VIAL IV ONE (12:43)
[2019-10-15] MEDS ORDERED: MIDAZOLAM 2 MG/2 ML VIAL ONE (12:43)
[2019-10-15] MEDS ORDERED: oxyCODONE-APAP 5-325MG 1 EACH TAB PO ONE (13:17)
[2019-10-15 13:21] VITALS: BP 115/79; PULSE 85; RESP 18
== END 2019-10-15 13:55 | disposition home or self-care (01) ==
LOC: OR 09:12
PROVIDERS: ATTEND Orthopaedic Surgery
DX: T84.84XA Pain due to internal orthopedic prosthetic devices, implants and grafts, initial encounter (principal); S93.04XD Dislocation of right ankle joint, subsequent encounter; I10 Essential (primary) hypertension; G47.33 Obstructive sleep apnea (adult) (pediatric); E03.9 Hypothyroidism, unspecified; E66.9 Obesity, unspecified; M81.0 Age-related osteoporosis without current pathological fracture; Z88.1 Allergy status to other antibiotic agents; Z88.0 Allergy status to penicillin; Z85.3 Personal history of malignant neoplasm of breast; Z79.890 Hormone replacement therapy; Z79.899 Other long term (current) drug therapy; Z99.89 Dependence on other enabling machines and devices; Z87.81 Personal history of (healed) traumatic fracture; Z90.49 Acquired absence of other specified parts of digestive tract; Z68.41 Body mass index [BMI] 40.0-44.9, adult
CPT/HCPCS: 20694; J2250; J1100; J2405; J2001; J3010; J2704; J1170

== ENCOUNTER → 2020-08-22 | Outpatient (CLI) | payer MEDICARE ==
--- NOTE | 2020-08-22 10:28 | MM ---
Reason for exam: additional evaluation requested from prior study. Last mammogram was performed 2 years and 1 month ago. History: Patient is postmenopausal and has history of breast cancer at age 55. Ultrasound-guided core biopsy of the right breast, January 24, 2016. Lumpectomy of the right breast, 2016. Benign stereotactic core biopsy of the right breast, November 12, 2001. Core biopsy of the right breast. Chemotherapy. Radiation therapy of the right breast. Taking antineoplastic for 4 years beginning at age 55. Physical Findings: Nurse did not find any significant physical abnormalities on exam. MG 3D Diag Mammo W/Cad ASHER Bilateral CC and MLO view(s) were taken. Prior study comparison: August 05, 2018, bilateral MG diagnostic mammo w CAD ASHER. April 24, 2017, mammogram. There are scattered fibroglandular densities. Previous mammotome biopsy in the right breast. Asymmetric breast tissue greater in the left breast. No significant new findings when compared with previous films. These results were verbally communicated with the patient and result sheet given to the patient on 08/22/20. ASSESSMENT: Benign, BI-RAD 2 RECOMMENDATION: Follow-up diagnostic mammogram of both breasts in 1 year.
== END | disposition home or self-care (01) ==
LOC: RADMAMWWP 09:23
PROVIDERS: ATTEND Family Medicine
DX: C50.911 Malignant neoplasm of unspecified site of right female breast (principal); N63.20 Unspecified lump in the left breast, unspecified quadrant
CPT/HCPCS: 77066; G0279; 77062

== ENCOUNTER → 2021-04-26 | Outpatient (CLI) | payer MEDICARE ==
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
== END | disposition home or self-care (01) ==
LOC: RADBDWWP 09:59
PROVIDERS: ATTEND Internal Medicine Hematology & Oncology
DX: M85.89 Other specified disorders of bone density and structure, multiple sites (principal)
CPT/HCPCS: 77080

== ENCOUNTER → 2021-10-17 | Outpatient (CLI) | payer MEDICARE ==
--- NOTE | 2021-10-18 09:37 | MM ---
Reason for exam: additional evaluation requested from prior study. Last mammogram was performed 1 year and 2 months ago. History: Patient is postmenopausal and has history of breast cancer at age 55. Ultrasound-guided core biopsy of the right breast, January 24, 2016. Lumpectomy of the right breast, 2016. Benign stereotactic core biopsy of the right breast, November 12, 2001. Core biopsy of the right breast. Chemotherapy. Radiation therapy of the right breast. Taking antineoplastic for 4 years beginning at age 55. Physical Findings: Nurse did not find any significant physical abnormalities on exam. MG 3D Diag Mammo W/Cad ASHER Bilateral CC and MLO view(s) were taken. Prior study comparison: August 22, 2020, bilateral MG 3d diag mammo w/cad ASHER. August 05, 2018, bilateral MG diagnostic mammo w CAD ASHER. There are scattered fibroglandular densities. Finding: There are indeterminate, fine, grouped/clustered calcifications in the 12 o'clock upper quadrant, anterior position of the right breast, 8cm from the nipple. This corresponds with lumpectomy site and is away from prior core marker. No significant changes in finding since August 22, 2020 and August 05, 2018. These results were verbally communicated with the patient and result sheet given to the patient on 10/17/21. ASSESSMENT: Benign, BI-RAD 2 RECOMMENDATION: Routine screening mammogram of both breasts in 1 year.
== END | disposition home or self-care (01) ==
LOC: RADMAMWWP 14:48
PROVIDERS: ATTEND Family Medicine
DX: N63.20 Unspecified lump in the left breast, unspecified quadrant (principal); C50.911 Malignant neoplasm of unspecified site of right female breast; Z78.0 Asymptomatic menopausal state
CPT/HCPCS: 77066; G0279; 77062

== ENCOUNTER → 2021-10-24 | Day surgery (SDC) | payer MEDICARE ==
[2021-10-22 13:54] VITALS: BMI 43.2
[~2021-10-24] MED LIST changes: -DEXAMETHASONE SOD PHOSPHATE 10 MG/ML 1 ML VIAL IV ONE; -KETOROLAC 30 MG/ML 1 ML VIAL IVP SCH; -LIDOCAINE 1% 20 ML VIAL (10MG/ML) FOR IV START INTRADERMA PRN; -METOCLOPRAMIDE 5 MG/ML 2 ML VIAL IVP PRN; -ONDANSETRON 4 MG/2 ML VIAL IVP ONE; +PROPOFOL 10 MG/ML 20 ML VIAL IV ONE
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
[2021-10-24 10:37] VITALS: TEMP 97.2
[2021-10-24 11:26] VITALS: RESP 16
[2021-10-24 11:56] VITALS: BP 142/86; PULSE 74
--- NOTE | 2021-10-24 12:07 | P.PCN ---
Date of Procedure: 10/24/21 Description of Procedure: PREOPERATIVE DIAGNOSIS: Colonoscopy screening. POSTOPERATIVE DIAGNOSIS: Colonoscopy screening. Diverticulosis, scattered. OPERATION: Colonoscopy to the cecum, ileocecal valve and appendiceal orifice. SURGEON: Ana Aponte MD. ANESTHESIA: MAC. INDICATIONS: The patient is a 61-year-old female who presents for colonoscopy screening. Last colonoscopy over 5 years ago. Benefits and risks were described and informed consent was obtained. DESCRIPTION OF PROCEDURE: The patient had undergone Sutab prep. The patient had been brought into the operating room and laid in the left lateral decubitus position. After adequate intravenous sedation, the rectum was examined with 2% lidocaine jelly. No external hemorrhoids were encountered. The rectal tone was within normal limits. No lesions were palpated in the rectal vault. An Olympus colonoscope was advanced until the cecum, ileocecal valve and appendiceal orifice were clearly viewed. The prep was fair. Scattered diverticulosis was encountered. No colonic polyps were found. No evidence of focal colitis was found. Retroflexion of the scope demonstrated grade 1 internal hemorrhoids without active bleeding or inflammation. The colon was desufflated. The patient had tolerated the procedure well. Withdrawal time was over 6 minutes. FINDINGS: Aronchick preparation quality scale 3 (1-5) Internal hemorrhoids, grade 1 No external prolapsed hemorrhoids. No arteriovenous malformations. No adenomatous polyps. No focal colitis. RECOMMENDATIONS: Lower endoscopy in 10 years, 2031 Plan - Discharge Summary Discharge Rx Participant: No New Discharge Prescriptions: New Omeprazole [PriLOSEC] 40 mg PO DAILY #14 cap Continue Anastrozole [Arimidex] 1 mg PO DAILY Oxybutynin Chloride [Ditropan] 5 mg PO DAILY lisinopriL [Zestril] 10 mg PO QAM Metoprolol Tartrate [Lopressor] 50 mg PO HS Levothyroxine Sodium 50 mcg PO QAM oxyCODONE-APAP 5-325MG [Percocet 5-325 mg] 1 tab PO BID PRN PRN Reason: Pain DULoxetine HCL [Cymbalta] 30 mg PO DAILY Calcium Carbonate/Vitamin D3 [Calcium 600 mg-D3 20 mcg (800 unit)] 1 each PO DAILY Discontinued Ibuprofen 800 mg PO Q8H PRN PRN Reason: Pain Omeprazole 20 mg PO DAILY Discharge Medication List Anastrozole [Arimidex] 1 mg PO DAILY 12/31/17 [History] Metoprolol Tartrate [Lopressor] 50 mg PO HS 12/31/17 [History] Oxybutynin Chloride [Ditropan] 5 mg PO DAILY 12/31/17 [History] lisinopriL [Zestril] 10 mg PO QAM 12/31/17 [History] Levothyroxine Sodium 50 mcg PO QAM 09/09/18 [History] oxyCODONE-APAP 5-325MG [Percocet 5-325 mg] 1 tab PO BID PRN 10/04/19 [History] Calcium Carbonate/Vitamin D3 [Calcium 600 mg-D3 20 mcg (800 unit)] 1 each PO DAILY 10/22/21 [History] DULoxetine HCL [Cymbalta] 30 mg PO DAILY 10/22/21 [History] Omeprazole [PriLOSEC] 40 mg PO DAILY #14 cap 10/24/21 [Rx] Follow up Appointment(s)/Referral(s): Ana Aponte MD [STAFF PHYSICIAN] - As Needed Patient Instructions/Handouts: Diverticulosis Diet (GEN), Diverticulosis (DC) Activity/Diet/Wound Care/Special Instructions: Repeat colonoscopy in 10 years, 2031 Discharge Disposition: HOME SELF-CARE
== END | disposition home or self-care (01) ==
LOC: ORWHC2ENDO 09:55
PROVIDERS: ATTEND Surgery Plastic and Reconstructive Surgery
DX: Z12.11 Encounter for screening for malignant neoplasm of colon (principal); K57.30 Diverticulosis of large intestine without perforation or abscess without bleeding; K64.0 First degree hemorrhoids; I10 Essential (primary) hypertension; M19.90 Unspecified osteoarthritis, unspecified site; G47.33 Obstructive sleep apnea (adult) (pediatric); K21.9 Gastro-esophageal reflux disease without esophagitis; E07.9 Disorder of thyroid, unspecified; Z85.3 Personal history of malignant neoplasm of breast; Z87.81 Personal history of (healed) traumatic fracture; Z86.19 Personal history of other infectious and parasitic diseases; Z90.49 Acquired absence of other specified parts of digestive tract; Z98.891 History of uterine scar from previous surgery; Z98.890 Other specified postprocedural states; F41.9 Anxiety disorder, unspecified; Z87.891 Personal history of nicotine dependence; Z79.811 Long term (current) use of aromatase inhibitors; Z79.890 Hormone replacement therapy; Z79.899 Other long term (current) drug therapy; Z88.1 Allergy status to other antibiotic agents; Z88.0 Allergy status to penicillin
CPT/HCPCS: J2704; G0121

== ENCOUNTER → 2022-11-11 | Outpatient (CLI) | payer MEDICARE | END | disposition home or self-care (01) | LOC: LABPAT 14:29 | PROVIDERS: ATTEND Orthopaedic Surgery Hand Surgery | DX: Z01.818 Encounter for other preprocedural examination (principal); R00.1 Bradycardia, unspecified; R94.31 Abnormal electrocardiogram [ECG] [EKG] | CPT/HCPCS: 93005 ==

== ENCOUNTER 2022-11-13 10:01 | Day surgery (SDC) | payer MEDICARE ==
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
[~2022-11-13 10:01] MED LIST changes: +LIDOCAINE 1% (10MG/ML) FOR IV START INTRADERMA PRN; -PROPOFOL 10 MG/ML 20 ML VIAL IV ONE
[2022-11-13 10:36] VITALS: TEMP 96.9
[2022-11-13] MEDS ORDERED: PROPOFOL 10 MG/ML 20 ML VIAL IV ONE (10:54)
[2022-11-13] MEDS ORDERED: MIDAZOLAM 2 MG/2 ML VIAL ONE (10:54)
[2022-11-13] MEDS ORDERED: LIDOCAINE 2% INJ 20 MG/ML (2 ML VIAL) ONE (10:54)
[2022-11-13] MEDS ORDERED: fentaNYL (PF) 50 MCG/ML 2 ML AMP ONE (10:54)
[2022-11-13] MEDS ORDERED: LIDOCAINE 1% INJ 10MG/ML (20 ML MDV) SQ ONE ×2 (10:56→11:02)
[2022-11-13] MEDS ORDERED: BUPIVACAINE (PF) 0.5% 30 ML VIAL SQ ONE ×2 (10:57→11:02)
--- NOTE | 2022-11-13 11:25 | P.OP ---
Date of Procedure: 11/13/22 Preoperative Diagnosis: Left carpal tunnel syndrome Postoperative Diagnosis: Left carpal tunnel syndrome Procedure(s) Performed: Left endoscopic carpal tunnel release Anesthesia: MAC Surgeon: Trae Payan Law Secretary #1: Tc Casey Estimated Blood Loss (ml): 0 Pathology: none sent Condition: stable Disposition: PACU Description of Procedure: This is a 62 year old female who presents today for a left endoscopic carpal tunnel release after having failed conservative treatment in the past. Risks and benefits of surgery were discussed with the patient including bleeding, damage to surrounding tissue, infection, need to convert to open procedure, need for further surgery as well as risks of anesthesia including pulmonary embolism and even and the patient wished to proceed with surgical intervention. The patients was seen in the pre-operative area by myself. Consent and H&P were completed and updated. The correct extremity was marked in the pre-operative area by myself and all other questions were answered. Operative Narrative: The patient was brought to the operating room by the department of anesthesia. They remained on the portable stretcher and a rolling hand table was brought to the side of the operative extremity. Pre-operative time out was performed indicating the correct patient, procedure and laterality. All in the room agreed. The patient was then drifted off to sleep by the department of anesthesia. MAC anesthesia was utilized and a 50:50 mixture of 1% Lidocaine and 0.5% bupivacaine was injected into the subcutaneous tissues of the palmar skin, 8ccs total. A nonsterile tourniquet was then applied to the operative extremity and the left upper extremity was then prepped and draped in normal sterile fashion. The operative extremity was the exsanguinated with an esmarch bandage and the tourniquet was inflated to 250mmHg. 15 blade scalpel was utilized to make a transverse incision on the palmar skin just ulnar to the palmaris longus tendon at the level of the distal wrist crease. Ragnell retractor was then placed radially and blunt dissection was performed to reveal the distal forearm fascia. This was lifted with fine Suman pick ups and Littler tenotomy scissors were then used to open the forearm fascia transversely and a double skin hook was then placed. Hamate finder was placed into the carpal tunnel and then sequential sized dilators were inserted followed by the synovial elevator to separate the flexor tenosynovium from the undersurface of the transverse carpal ligament and a washboard texture was felt. The Micro[employer]ire endoscopic carpal tunnel release system gun was the then inserted into the carpal tunnel hugging the deep portion of the transverse carpal ligament in line with the base of the ring finger. Transverse fibers of the ligament were directly visualized. Pressure was applied on the palm to reveal the distal extent of the transverse carpal ligament. The blade was then deployed and the distal half of the transverse carpal ligament was released. The scope was then brought distal again and remaining transverse fibers were incised with the blade. The proximal half of the transverse carpal ligament was then divided and again the scope was advanced distal and remaining transverse fibers were incised with the blade. The radial and ulnar leaflets were directly visualized and mobile consistent with complete release. Tenotomy scissors were then utilize d to release the remaining distal forearm fascia under direct visualization taking care to preserve the palmar cutaneous branch of the median nerve. Skin closure was performed with interrupted 4-0 Monocryl suture followed by Mastisol and steri strips. Sterile dressing was applied consisting of adaptic, 4x4s, Webril, and an aaron bandage. Tourniquet was let down and the hand immediately was well perfused. The patient was then woken by the department of anesthesia and transferred to PACU in stable condition. Tc ISRAEL was present for the case in its entirety and assisted in major portions of the case and protection of vital neurovascular structures. Trae Payan D.O. Orthopedic Hand/Upper Extremity Surgeon
[2022-11-13 11:32] VITALS: RESP 16
[2022-11-13 12:10] VITALS: BP 129/77; PULSE 60
== END 2022-11-13 12:35 | disposition home or self-care (01) ==
LOC: OR 10:01
PROVIDERS: ATTEND Orthopaedic Surgery Hand Surgery
DX: G56.02 Carpal tunnel syndrome, left upper limb (principal); I10 Essential (primary) hypertension; I48.91 Unspecified atrial fibrillation; K21.9 Gastro-esophageal reflux disease without esophagitis; E66.01 Morbid (severe) obesity due to excess calories; Z68.43 Body mass index [BMI] 50.0-59.9, adult; M19.90 Unspecified osteoarthritis, unspecified site; G47.33 Obstructive sleep apnea (adult) (pediatric); Z99.89 Dependence on other enabling machines and devices; E07.9 Disorder of thyroid, unspecified; Z87.828 Personal history of other (healed) physical injury and trauma; Z85.3 Personal history of malignant neoplasm of breast; Z86.12 Personal history of poliomyelitis; Z90.49 Acquired absence of other specified parts of digestive tract; Z90.721 Acquired absence of ovaries, unilateral; Z98.890 Other specified postprocedural states; Z87.891 Personal history of nicotine dependence; Z79.890 Hormone replacement therapy; Z79.899 Other long term (current) drug therapy; Z88.0 Allergy status to penicillin; Z88.1 Allergy status to other antibiotic agents
CPT/HCPCS: 29848; J2250; J2001 ×2; J3010; J2704

== ENCOUNTER → 2023-01-06 | Outpatient (CLI) | payer MEDICARE ==
--- NOTE | 2023-01-06 15:02 | XR ---
EXAMINATION TYPE: XR knee 4V LT DATE OF EXAM: 01/06/2023 COMPARISON: None HISTORY: Pain, chronic TECHNIQUE: 4 view left knee FINDINGS: There is some mild degenerative change of the medial tibial plateau. Medial tibial plateau and the femoral condylar spurring is present. No joint effusion is evident. No acute fracture or disl ocation is evident. Follow up exams can be performed 7-10 days from acute trauma for continued pain. IMPRESSION: 1. Mild degenerative changes medial compartment left knee
--- NOTE | 2023-01-06 15:03 | XR ---
EXAMINATION TYPE: XR knee 4V RT DATE OF EXAM: 01/06/2023 COMPARISON: None HISTORY: Chronic pain TECHNIQUE: 4 view right knee FINDINGS: There is medial femoral condylar and tibial plateau spurring. Mild narrowing of the medial compartment joint space may be present. No acute fracture or dislocation is evident. No joint effusio n is evident. Follow up exams can be performed 710 days acute trauma for continued pain. IMPRESSION: 1. Mild degenerative joint changes medial compartment right knee.
--- NOTE | 2023-01-06 17:15 | MM ---
Reason for Exam: Follow-up at short interval from prior study. Last mammogram was performed 1 year(s) and 3 month(s) ago. Patient History: Menarche at age 12. First Full-Term at age 22. Right ovary removed at age 39. Postmenopausal. Breast cancer, right, age 55. 01/24/2016, Ultrasound-Guided Core Biopsy on the Right side. 2016, Lumpectomy on the Right side. Core Biopsy on the Right side. 11/12/2001, Benign Stereotactic Core Biopsy on the right side. Chemotherapy. Radiation Therapy, right. Tissue Density: There are scattered fibroglandular densities. Findings: Analyzed By CAD. Pattern appears symmetrical and stable. Surgical changes are within the right breast. Post radiation calcification appears to be at the biopsy site stable from 10/17/2021. No significant interval change is evident. No suspicious groups of microcalcifications, spiculated or lobular masses, architectural distortion or other secondary signs of malignancy are mammographically apparent. Overall Assessment: Benign, BI-RAD 2 Management: Diagnostic Mammogram of both breasts in 1 year. A negative mammogram report should not preclude additional follow up of suspicious palpable abnormalities. Patient should continue monthly self breast exam. A clinical breast exam by your physician is recommended on an annual basis and results should be correlated with mammographic findings. Electronically signed and approved by: Cristian Whitmore D.O. Radiologis
== END | disposition home or self-care (01) ==
LOC: RADMAMWWP 12:53
PROVIDERS: ATTEND Internal Medicine
DX: C50.911 Malignant neoplasm of unspecified site of right female breast (principal); M17.0 Bilateral primary osteoarthritis of knee; Z78.0 Asymptomatic menopausal state; Z90.721 Acquired absence of ovaries, unilateral; Z17.1 Estrogen receptor negative status [ER-]; Z85.3 Personal history of malignant neoplasm of breast
CPT/HCPCS: 73564 ×2; 77066; G0279; 77062

== ENCOUNTER → 2023-01-21 | Outpatient (CLI) | payer MEDICARE ==
--- NOTE | 2023-01-21 15:36 | US ---
EXAMINATION TYPE: US kidneys/renal and bladder DATE OF EXAM: 01/21/2023 COMPARISON: NONE CLINICAL INDICATION: Female, 62 years old with history of N18.31 STAGE 3 CHR KIDNEY DISEASE; CKD EXAM MEASUREMENTS: Right Kidney: 8.5x3.8x4.0 cm Left Kidney: 9.5x4.2x3.8 cm Right Kidney: No hydronephrosis or masses seen cortical medullary differentiation is maintained. Left Kidney: No hydronephrosis or masses seen , cortical medullary differentiation is maintained. Bladder: wnl, slightly nondistended. Bilateral Jets seen: Yes There is no evidence for hydronephrosis at this point in time. No nephrolithiasis is seen. No lyndsey s are identified. The urinary bladder is anechoic. Bilateral ureteral jets are seen. IMPRESSION: No evidence of obstructive uropathy. Cortical medullary differentiation maintained.
== END | disposition home or self-care (01) ==
LOC: RADUSWWP 14:52
PROVIDERS: ATTEND Internal Medicine
DX: N18.31 Chronic kidney disease, stage 3a (principal)
CPT/HCPCS: 76770

== ENCOUNTER → 2023-05-16 | Outpatient (CLI) | payer MEDICARE ==
--- NOTE | 2023-05-16 15:29 | BD ---
EXAMINATION TYPE: Axial Bone Density DATE OF EXAM: 05/16/2023 CLINICAL HISTORY: 62 years old Female. ICD-10 CODE: C50.411 MALIG BEATA OF UPPER QUAD R BREAST Height: Weight: FRAX RISK QUESTIONS: Family History (Parent hip fracture): no History of Fracture in Adulthood: yes Secondary Osteoporosis: no Rheumatoid Arthritis: no Current Tobacco Use: no RISK FACTORS HISTORY OF: Spine Fracture: yes When: 2019 Surgery to Thoracic Spine: yes When: 2019 Family History of Osteoporosis: no Active: yes Diet low in dairy products/other sources of calcium: yes Postmenopausal woman: yes Lost more than 2 inches in height since high school: no Frequent falls: no Poor Health: no MEDICATIONS: Thyroid Medications: yes Which medication: Synthroid How Lon+ years Additional Medications: yes antineoplastic, bladder meds, hbp, anxiety meds Additional History: yes breast cancer in 2017 rad and chemo EXAM MEASUREMENTS: Bone mineral densitometry was performed using the [employer] System. Bone mineral density as measured about the Lumbar spine is: ----- L1-L4(G/cm2): 1.170 T Score Values are as follows: ----- L1: 1.2 ----- L2: -0.8 ----- L3: -0.9 ----- L4: 0.1 ----- L1-L4: -0.1 Z Score Values are as follows: ----- L1: 1.5 ----- L2: -0.5 ----- L3: -0.6 ----- L4: 0.4 ----- L1-L4: 0.2 Bone mineral density has: Decreased -1.7% since study of: 04/26/2021 Bone mineral density about the R hip (g/cm2): 0.881 Bone mineral density about the L hip (g/cm2): 0.909 T Score values are as follows: -----R Neck: -1.8 -----L Neck: -1.7 -----R Total: -1.0 -----L Total: -0.8 Z Score values are as follows: -----R Neck: -1.2 -----L Neck: -1.1 -----R Total: -0.7 -----L Total: -0.5 Bone mineral density has: Increased 2.9% since study of: 04/26/2021 FRAX%s: The graph provided illustrates a 13.1% chance for a major osteoporotic fx and a 1.4% chance f or the hips probability for fx in 10 years time. IMPRESSION: Normal (Values between +1 and -1 indicate normal bone mass). Consider repeating this study in 5 year s or sooner if there is some new clinical indication. NOTE: T-SCORE=SD OF THE YOUNG ADULT MEAN.
== END | disposition home or self-care (01) ==
LOC: RADBDWWP 14:04
PROVIDERS: ATTEND Internal Medicine Hematology & Oncology
DX: C50.411 Malignant neoplasm of upper-outer quadrant of right female breast (principal); M85.851 Other specified disorders of bone density and structure, right thigh; M85.852 Other specified disorders of bone density and structure, left thigh; I51.9 Heart disease, unspecified; Z78.0 Asymptomatic menopausal state; Z85.3 Personal history of malignant neoplasm of breast; Z17.0 Estrogen receptor positive status [ER+]; Z71.3 Dietary counseling and surveillance
CPT/HCPCS: 77080

== ENCOUNTER → 2024-02-17 | Outpatient (CLI) | payer MEDICARE | END | disposition home or self-care (01) | LOC: LABPAT 14:51 | PROVIDERS: ATTEND Orthopaedic Surgery | DX: Z01.812 Encounter for preprocedural laboratory examination (principal); M17.11 Unilateral primary osteoarthritis, right knee; Z22.322 Carrier or suspected carrier of Methicillin resistant Staphylococcus aureus | CPT/HCPCS: 87070 ==

== ENCOUNTER → 2024-02-19 | Outpatient (CLI) | payer MEDICARE ==
[2024-02-19 14:41] LABS: HCT 39.9 % (37.2-46.3); HGB 12.8 g/dL (12.0-15.0); MCH 30.2 pg (27.0-32.0); MCHC 32.1 g/dL (32.0-37.0); MCV 94.1 FL (80.0-97.0); Mean Platelet Volume 10.6 FL (9.5-12.2); NRBC Per 100 WBC 0 X 10*3/uL (0.00-0.01); Platelet Count 413 X 10*3/uL (140-440); RBC 4.24 X 10*6/uL (4.10-5.20); RDW 13.3 % (11.5-14.5)
[2024-02-19 14:42] LABS: Basophils % (A) 1.2 %; Eosinophils # (A) 0.47 X 10*3/uL (0.04-0.35); Eosinophils % (A) 5.7 %; Lymphocytes # (A) 1.88 X 10*3/uL (0.90-5.00); Lymphocytes % (A) 22.7 %; Monocytes % (A) 4.8 %
[2024-02-19 14:56] LABS: Blood Urea Nitrogen 23.3 mg/dL (9.0-27.0); Glucose 109 mg/dL (70-110)
[2024-02-19 14:59] LABS: BUN/Creat Ratio 25.89 Ratio (12.00-20.00); Calcium 9.4 mg/dL (8.7-10.3); Carbon Dioxide 21.7 mmol/L (21.6-31.8); Chloride 109 mmol/L (96-109); Potassium 4.6 mmol/L (3.5-5.5); Sodium 142 mmol/L (135-145)
[2024-02-19 15:33] LABS: INR 0.97 sec (0.93-1.11); Prothrombin Time 10.5 sec (9.9-11.9)
== END | disposition home or self-care (01) ==
LOC: LABPAT 11:01
PROVIDERS: ATTEND Orthopaedic Surgery
DX: Z01.818 Encounter for other preprocedural examination (principal); M17.11 Unilateral primary osteoarthritis, right knee
CPT/HCPCS: 36415; 80048; 85025; 85610

== ENCOUNTER 2024-02-24 08:19 | Observation (INO) | payer MEDICARE ==
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
[~2024-02-24 08:19] MED LIST changes: -LACTATED RINGERS 1,000 ML IV SCH; -LIDOCAINE 1% (10MG/ML) FOR IV START INTRADERMA PRN; +TRANEXAMIC 1,000 MG/100ML-NACL 1,000 MG in SALINE 1 100ML.BAG IVPB PRN
[2024-02-24] MEDS ORDERED: MIDAZOLAM 2 MG/2 ML VIAL IV PRN (08:36)
[2024-02-24] MEDS: ACETAMINOPHEN TAB 500 MG TAB PO PRN (09:16)
[2024-02-24] MEDS: MELOXICAM 7.5 MG TAB PO PRN (09:17)
[2024-02-24] MEDS: LACTATED RINGERS 1,000 ML IV SCH (09:20)
[2024-02-24] MEDS: IV FLUID CONTINUATION 1,000 ML IV ONE ×2 (09:20→11:58)
[2024-02-24] MEDS: DEXAMETHASONE SOD PHOSPHATE 4 MG/ML 1 ML VIAL IV ONE (09:24)
[2024-02-24] MEDS: ONDANSETRON 4 MG/2 ML VIAL IVP ONE (09:24)
[2024-02-24] MEDS: MIDAZOLAM 2 MG/2 ML VIAL IVP ONE (09:27)
[2024-02-24] MEDS: SCOPOLAMINE 1 MG/72 HR PATCH TRANSDERM ONE (09:49)
--- NOTE | 2024-02-24 09:52 | P.ANPRN ---
Procedure Note - Anesthesia - Nerve Block Performed Right iPack Single Time Out Performed: Yes Date of Procedure: 02/24/24 Procedure Start Time: : Procedure Stop Time: Location of Patient: PreOp Indication: Acute Post-Operative Pain, Analgesia, Requested by Surgeon Sedation Type: Sedate with meaningful contact maintained Preparation: Sterile Prep, Sterile Dressing Position: Left Lateral Catheter: None Needle Types: Pajunk Needle Gauge: 21 Ultrasound used to visualize needle placement: Yes Ultrasound used to observe medication spread: Yes Injectate: 0.5% Ropivacaine (see comment for volume) (Ropiv 20ml+[id number]) Blood Aspirated: No Pain Paresthesia on Injection Noted: No Resistance on Injection: Normal Image Stored and Saved: Yes Events: Uneventful and Well Tolerated
--- NOTE | 2024-02-24 09:53 | P.ANPRN ---
Procedure Note - Anesthesia - Nerve Block Performed Right Adductor Canal Infusion Time Out Performed: Yes Date of Procedure: 02/24/24 Procedure Start Time: : Procedure Stop Time: :36 Location of Patient: PreOp Indication: Acute Post-Operative Pain, Analgesia, Requested by Surgeon Sedation Type: Sedate with meaningful contact maintained Preparation: Sterile Prep Position: Supine Needle Types: On-Q Ultrasound used to visualize needle placement: Yes Ultrasound used to observe medication spread: Yes Injectate: 0.5% Ropivacaine (see comment for volume) (Ropic 20ml+[id number]) Blood Aspirated: No Pain Paresthesia on Injection Noted: No Resistance on Injection: Normal Image Stored and Saved: Yes Events: Uneventful and Well Tolerated
[2024-02-24] MEDS ORDERED: ROPIVACAINE 5 MG/ML 30 ML VIAL ONE (10:05)
[2024-02-24] MEDS ORDERED: LIDOCAINE 1% INJ 10MG/ML (20 ML MDV) ONE (10:05)
[2024-02-24] MEDS ORDERED: PROPOFOL 10 MG/ML 20 ML VIAL IV ONE (10:05)
[2024-02-24] MEDS ORDERED: TRANEXAMIC 1,000 MG/100ML-NACL PREMIX BAG ONE (10:05)
[2024-02-24] MEDS ORDERED: ePHEDrine 50 MG/ML 1 ML VIAL ONE (10:05)
[2024-02-24] MEDS ORDERED: PHENYLEPHRINE-0.9% NACL SYG 1,000 MCG/10 ML SYRINGE ONE (10:05)
[2024-02-24] MEDS ORDERED: MIDAZOLAM 2 MG/2 ML VIAL ONE (10:05)
[2024-02-24] MEDS ORDERED: DEXAMETHASONE SOD PHOSPHATE 4 MG/ML 1 ML VIAL ONE (10:05)
[2024-02-24] MEDS: ceFAZolin 3,000 MG in SODIUM CHLORIDE 0.9% IRRIGATIO 3,000 ML IRRIGATION ONE (10:41)
[2024-02-24] MEDS ORDERED: HYDROmorphone 0.5 MG/0.5 ML SYRINGE IVP PRN (11:59)
[2024-02-24] MEDS ORDERED: MAGNESIUM HYDROXIDE 2,400 MG/30 ML CUP PO PRN (11:59)
[2024-02-24] MEDS ORDERED: NALOXONE 0.4 MG/ML 1 ML VIAL IV PRN (11:59)
--- NOTE | 2024-02-24 12:20 | P.OP ---
Date of Procedure: 02/24/24 Preoperative Diagnosis: Right knee severe tricompartmental osteoarthrosis Postoperative Diagnosis: Same Procedure(s) Performed: Right total knee arthroplastycementedposterior stabilized Implants: Depuy Attune size 3 cemented narrow femoral component, size 3 cemented tibial component with a 14 x 50 mm stem, 12 mm articular surface, 29 mm cemented patellar component. There is a posterior stabilized implant. Anesthesia: regional, spinal Surgeon: Richy Dailey Carpet Installation Specialist #1: Tc Casey Estimated Blood Loss (ml): 50 Pathology: none sent Condition: stable Disposition: PACU Indications for Procedure: The patient is a 63-year-old female who presents with progressive right knee pain secondary to osteoarthrosis despite conservative measures. A discussion of the risks and benefits of continued conservative measures versus operative intervention was made with the patient. She opted to proceed with surgery. She has been working on weight loss diligently. Specific risks of surgery to include infection, neurovascular injury, develop blood clots, fracture, possible component loosening/failure and possible need for subsequent procedures was discussed. Informed consent was obtained. Operative Findings: As below Description of Procedure: The patient was brought to the operating room, and after induction of spinal anesthesia the right lower extremity was prepped and draped in a normal fashion. The tourniquet was inflated to 270 mm marker. A longitudinal incision extending 3 finger breaths above the superior pole of patella extending to the medial aspect the tibial tubercle was then made. The skin and subcutaneous tissues were divided sharply. Electrocautery was used for hemostasis. A medial parapatellar arthrotomy was performed. The medial soft tissues to include the superficial and deep portions of the medial collateral ligament were elevated subperiosteally. The patella was everted. A portion of the retropatellar fat pad was excised sharply. The anterior cruciate ligament was sacrificed. Blunt retractors were placed. A starting hole was made in the distal femur 1 cm anterior to the posterior cruciate ligament origin. An intramedullary femoral guide was then inserted planning on 5 valgus distal cut with 9 mm distal resection. The cutting block was pinned in place. The distal cut was then made. The posterior referencing sizing guide was utilized. I felt size 3 narrow was most appropriate. 3 of external rotation was built into the system and verified off the trans-epicondylar axis and the posterior condyles. The cutting block was pinned in place. The anterior, posterior, and chamfer cuts then made. Bone fragments were removed. The intercondylar guide was placed and the notch cut was made with a sagittal saw. The bone block was removed in one fragment. The trial component was then placed. There is good anterior to posterior and medial to lateral fit. The distal peg holes were drilled. The trial component was removed. Attention was then paid towards preparing the proximal tibia. An extra medullary guide was utilized in line with the tibial shaft and second metatarsal distally. I planned on 2 mm resection from the medial compartment. The cutting block was pinned in place. The proximal tibial cut was then made. The bone was removed in one fragment. The remnants of the medial and lateral menisci were excised at the capsular junction with electrocautery. The tibia sized most appropriately at size 3. The trial femoral and tibial components were placed along with a 12 mm articular surface. I was able to obtain full flexion and extension with internal and external rotation. After several flexion and extension cycles, the tibial rotation was marked with electrocautery line with the medial one third of the tibial tubercle. Attention was then paid towards preparing the patella. A patella reamer was utilized taking stem to 14 mm of bone stock. A good flush cut was made. The patella sized most appropriately 29 mm. The peg holes were drilled. The trial components placed. I had good patellofemoral tracking with no hands technique. The trial components were then removed. The tibia was prepared in the appropriate rotation with appropriate drill and keel punch. The posterior osteophytes were removed with a curved osteotome. The flexion and extension gaps were checked and felt to be symmetric at 12 mm. A trial components were then removed. The bony surfaces were prepared with pulsatile lavage and dried. The tibial component was then cemented place was fully seated. Excess cement was removed. The femoral component cemented place and was fully seated. Excess cement was removed. The trial 12 mm articular surface was placed and the knee was put in full extension. The patella component was cemented place. After the cement had sufficiently hardened, the knee was again taken through a range of motion. Again I was able to obtain full flexion and extension with varus and valgus stress. The trial 12 mm articular surface was removed and the final one inserted. This was fully seated. Care was taken to avoid any soft tissue interposition. Pulsatile lavage was again utilized. The medial parapatellar arthrotomy was closed with #2 Ethibond suture. The tourniquet was deflated with approximately 60 minutes total tourniquet time. Final hemostasis was obtained with the cautery. There was minimal bleeding therefore a deep drain was not placed. The subcutaneous tissues were reapproximated with interrupted 2-0 Vicryl sutures. The skin was reapproximated with 3-0 subcuticular strata fix suture. Skin tape and adhesive was applied. A sterile dressing was applied. The patient was awoken from sedation and transferred to recovery room in good condition. Blood loss was estimated at 50 mL. No complications were incurred. Sponge and needle counts were correct at the end of the case. Tc ISRAEL assisted during the major components of this case to include exposure, bone resection, implantation, and closure.
[2024-02-24] MEDS: HYDROmorphone 0.5 MG/0.5 ML SYRINGE IVP PRN (12:27)
[2024-02-24] MEDS: ROPIVACAINE 1,100 MG, SODIUM CHLORIDE 0.9% 500 ML 330 ML, EMPTY PAIN BALL 1 EACH MISCELLANE PRN (12:36)
--- NOTE | 2024-02-24 12:59 | XR ---
EXAMINATION TYPE: XR knee limited 2 views RT DATE OF EXAM: 02/24/2024 Comparison: 01/06/2023 Clinical History: 63-year-old female Evaluation for Postop abnormality and alignment Findings: Images show placement of short stemmed right total knee arthroplasty. Distal femoral and proximal tib ial components of the prosthesis are well seated without periprosthetic fracture. Alignment grossly a natomic. Anterior soft tissue swelling with soft tissue air as well as intra-articular air related to recent operation. Impression: Uncomplicated postoperative appearance right total knee arthroplasty with short stemmed tibial tray c omponent.
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
[2024-02-24] MEDS: HYDROmorphone 1 MG/ML 1 ML SYRINGE IVP PRN (15:34)
[2024-02-24] MEDS: SENNOSIDES-DOCUSATE SODIUM 1 EACH TAB PO SCH (22:38)
[2024-02-24] MEDS: MELATONIN 5 MG TABLET PO SCH (22:38)
[2024-02-24] MEDS: METOPROLOL TARTRATE 50 MG TAB PO SCH (22:38)
[2024-02-25] MEDS: LEVOTHYROXINE 100 MCG TAB PO SCH (05:13)
[2024-02-25 06:40] LABS: INR 0.9 (<1.2); Prothrombin Time 10.3 sec (10.0-12.5)
[2024-02-25] MEDS: oxyBUTYnin chloride 5 MG TAB PO SCH (08:24)
[2024-02-25] MEDS: RIVAROXABAN 10 MG TAB PO SCH (08:24)
[2024-02-25] MEDS: DULoxetine HCL 60 MG CAPSULE.DR PO SCH (08:24)
[2024-02-25] MEDS: lisinopriL 10 MG TAB PO SCH (08:25)
[2024-02-25] MEDS: ANASTROZOLE 1 MG TAB PO SCH (08:25)
[2024-02-25 09:06] VITALS: RESP 18
[2024-02-25 09:08] LABS: Basophils # (A) 0.02 X 10*3/uL (0.00-0.10); Basophils % (A) 0.1 %; Eosinophils # (A) 0 X 10*3/uL (0.04-0.35); Eosinophils % (A) 0 %; HCT 35.9 % (37.2-46.3); HGB 11.5 g/dL (12.0-15.0); Lymphocytes # (A) 0.98 X 10*3/uL (0.90-5.00); Lymphocytes % (A) 5.6 %; MCH 30.7 pg (27.0-32.0); MCV 95.7 FL (80.0-97.0); Mean Platelet Volume 10.9 FL (9.5-12.2); Monocytes # (A) 1.23 X 10*3/uL (0.20-1.00); NRBC Per 100 WBC 0 X 10*3/uL (0.00-0.01); Neutrophils # (A) 15.26 X 10*3/uL (1.80-7.70); Neutrophils % (A) 86.9 %; Platelet Count 406 X 10*3/uL (140-440); RBC 3.75 X 10*6/uL (4.10-5.20); RDW 13.4 % (11.5-14.5); WBC 17.56 X 10*3/uL (4.50-10.00)
--- NOTE | 2024-02-25 10:45 | P.PN ---
Subjective Progress Note Date: 02/25/24 Lucia today, no chest pain abdominal pain and vomiting. Ambulating the pain. Objective - Vital Signs Vital signs: Vital Signs Temp 98.1 F 02/25/24 06:50 Pulse 78 02/25/24 06:50 Resp 18 02/25/24 06:50 BP 115/69 02/25/24 06:50 Pulse Ox 97 02/25/24 06:50 FiO2 Intake & Output 02/24/24 02/25/24 02/25/24 18:59 06:59 18:59 Intake Total 1151 Output Total 50 Balance 1101 Weight 102.1 kg Intake: IV 1151 Output: Estimated Blood Loss 50 Other: Voiding Method Toilet Toilet # Voids 1 1 - Exam Constitutional: No acute distress, conversant, pleasant Eyes: Anicteric sclerae, moist conjunctiva, no lid-lag, PERRLA ENMT: NC/AT,Oropharynx clear, no erythema, exudates Neck:Supple, FROM, no masses, or JVD, No carotid bruits; No thyromegaly Lungs: Clear to auscultation, Clear to percussion, Normal respiratory effort, no accessory muscle use Cardiovascular: Heart regular in rate and rhythm, No murmurs, gallops, or rubs no peripheral edema Abdominal: Soft Nontender, nom distended, no guarding, no rebound or rigidity, Normoactive bowel sounds No hepatomegaly, No splenomegaly, No palpable mass No abdominal wall hernia noted Skin: Normal temperature, tone, texture, turgor, No induration No subcutaneous nodules, No rash, lesions, No ulcers Extremities:No digital cyanosis No clubbing, Pedal pulses intact and symmetrical Radial pulses intact and symmetrical Normal gait and station, No calf tenderness Psychiatric: Alert and oriented to person, place and time, Appropriate affect Intact judgement Neuro: Muscles Strength 5/5 in all 4 extremities, Sensation to light touch grossly present throughout, Cranial nerves II-XII grossly intact. No focal sensory deficits - Labs CBC & Chem 7: 02/25/24 05:46 Labs: Abnormal Lab Results - Last 24 Hours (Table) 02/25/24 Range/Units 05:46 WBC 17.56 H (4.50-10.00) X 10*3/uL RBC 3.75 L (4.10-5.20) X 10*6/uL Hgb 11.5 L (12.0-15.0) g/dL Hct 35.9 L (37.2-46.3) % Immature Gran # 0.07 H (0.00-0.04) X 10*3/uL Neutrophils # 15.26 H (1.80-7.70) X 10*3/uL Monocytes # 1.23 H (0.20-1.00) X 10*3/uL Eosinophils # 0 L (0.04-0.35) X 10*3/uL Assessment and Plan Plan: Assessment and plan: 1. Chronic right knee pain: Status post right total knee arthroplasty, pain control as indicated, PT OT. Orthopedics following.Continue supportive care. 2. Objective sleep apnea on CPAP 3.Essential hypertension: Continue outpatient medications with metoprolol and lisinopril 4. Hypothyroidism: Continue Synthroid 5. Depression: Continue duloxetine 6. Morbid obesity: BMI 47, supportive care. 7. history of right-sided breast cancer: Continue anastrozole Thank you for the consultation we will follow with you Possible discharge later today or tomorrow.
--- NOTE | 2024-02-25 13:17 | P.PN ---
Subjective Progress Note Date: 02/25/24 Principal diagnosis: Right knee osteoarthritis Patient was seen at bedside this morning sitting up in chair with legs elevated and dressing present over right knee. Patient says she just finished working with therapy and did have somewhat of a difficult time walking using a walker and had a hard time putting weight on her right lower extremity. She says she did get increasing pain when trying to walk. Patient is hoping to stay 1 more night for additional pain control and therapy. Patient says she does have a walker at home. Patient says she has urinated several times since surgery yesterday. Patient says she has not had a bowel movement yet, however she has been passing gas. Patient denies chest pain, fever, shortness of breath, nausea, vomiting, change in vision, loss of bowel/bladder control. Objective - Vital Signs Vital signs: Vital Signs Temp 98.1 F 02/25/24 06:50 Pulse 78 02/25/24 06:50 Resp 18 02/25/24 06:50 BP 115/69 02/25/24 06:50 Pulse Ox 97 02/25/24 06:50 FiO2 Intake & Output 02/24/24 02/25/24 02/25/24 18:59 06:59 18:59 Intake Total 1151 Output Total 50 Balance 1101 Weight 102.1 kg Intake: IV 1151 Output: Estimated Blood Loss 50 Other: Voiding Method Toilet Toilet # Voids 1 1 - Exam Right knee: Incision is clean, dry, and intact. The exofin fusion tape is in good condition. There is minimal soft tissue swelling and ecchymosis surrounding the medial and lateral aspects of the incision. Calf is soft, no tenderness with palpation. Plantar flexion, dorsiflexion, EHL, FHL are intact. Sensory exam to light touch throughout the extremity is intact, dorsal pedis pulses 2+. - Labs CBC & Chem 7: 02/25/24 05:46 Labs: Abnormal Lab Results - Last 24 Hours (Table) 02/25/24 Range/Units 05:46 WBC 17.56 H (4.50-10.00) X 10*3/uL RBC 3.75 L (4.10-5.20) X 10*6/uL Hgb 11.5 L (12.0-15.0) g/dL Hct 35.9 L (37.2-46.3) % Immature Gran # 0.07 H (0.00-0.04) X 10*3/uL Neutrophils # 15.26 H (1.80-7.70) X 10*3/uL Monocytes # 1.23 H (0.20-1.00) X 10*3/uL Eosinophils # 0 L (0.04-0.35) X 10*3/uL Assessment and Plan Assessment: 1. Right knee osteoarthritis -Postop day 1 status post right total knee arthroplasty Plan: 1. Right knee osteoarthritis -right total knee arthroplasty form yesterday, 02/24/2024. Patient stable at bedside this morning. Patient did have a difficult time with some ambulation while up with therapy. We will plan to keep patient 1 more night for additional pain control and therapy. Plan for discharge home tomorrow with health services. 2. Appreciate medical management 3. Pain management -[place]; Dilaudid only as necessary 4. DVT prophylaxis -Xarelto in hospital. 5. GI prophylaxis -senna 6. PT/OT -weightbearing as tolerated with walker 7. Encourage incentive spirometer use 8. Discharge planning -plan for home with health services tomorrow Time with Patient: Less than 30
[2024-02-25] MEDS: oxyCODONE-APAP 5-325MG 1 EACH TAB PO PRN (18:50)
--- NOTE | 2024-02-25 19:12 | P.PN ---
Progress Note - Text 02/25/24 638am 63-year-old female status post total knee replacement. Patient has an On-Q pump for postop pain control with a solution running at 8 cc an hour with a VAS of 4. Dressing clean dry and intact to continue On-Q pump infusion
--- NOTE | 2024-02-26 07:16 | P.DS ---
Providers Date of admission: 02/24/24 12:13 Expected date of discharge: 02/26/24 Attending physician: Richy Dailey Consults: 02/24/24 12:02 Consult Physician Routine Consulting Provider: Turner Gudino Consult Reason/Comments: Medical Management s/p right total knee arthroplasty Do you want consulting provider notified?: Yes Primary care physician: Naren Bueno [facility] Course: Date of admission: 02/24/2024 Date of discharge: 02/26/2024 Admission diagnosis: Right knee osteoarthritis Discharge diagnosis: Same Attending physician: Dr. Dailey Surgical procedures: Right total knee arthroplasty Brief history: Patient is a 63-year-old female with a history of progressive primary right knee osteoarthritis. At this point patient has failed conservative treatment measures and has opted to proceed with a elective right total knee arthroplasty. Hospital course: Details of patient's surgery can be found in operative report. Patient tolerated the procedure well and was subsequently transported to orthopedic floor. Patient's orthopeidc and medical care was provided daily. Patient had daily laboratory tests performed for evaluation of overall blood counts. Patient had daily physical therapy to include strengthening range of motion as well as education with walker ambulation. Patient was treated with Xarelto for their postoperative DVT prophylaxis during their inpatient stay. Patient was noted to have a relatively uneventful postoperative course. Patient reported satisfactory pain control with oral pain medications by postoperative day 2. Patient showed satisfactory progress with physical therapy. Patient moved steadily through the program and had no difficulty meeting the goals by postoperative day 2. Given patient's otherwise satisfactory course and having met physical therapy goals, plan is to discharge patient home with health services on postoperative day 2. Discharge condition/disposition: Patient will be discharged home with [facility] in stable condition. Discharge medications: Instructions are given on resumption of patient's normal daily medications per primary care recommendation, in addition patient will be prescribed oxycodone; Vistaril; senna; Eliquis 2.5 mg twice daily x 2 weeks. Discharge instructions: 1. Wound care and infection precautions, keep incision dry and covered while showering, no lotions, creams, moisturizers. No soaking, tubs, pools, hottubs. Do not scrub over the incision. 2. Weight-bear as tolerated with walker / cane until follow-up. 3. Ice and elevate when necessary. Do not exceed 20 minutes per hour with ice pack. 4. Utilize compression sleeve until seen at first follow up appointment. 5. Visiting nursing care. 6. Home physical therapy including home CPM. 7. Pain meds and anticoagulants per prescription. 8. Pain medication has potential to cause constipation. Increase oral fluid and fiber intake. Contact primary care provider if you have not had a bowel movement within 48 hours after discharge 9. No anti-inflammatory medication until discussed at first post operative visit, this including Motrin, Aleve, Mobic, Diclofenac 10. Follow up in office at 2 weeks postop with Ben Berry PA-C / Tc Casey PA-C 11. Follow up with your primary care doctor 7-10 days after discharge. 12. Contact [facility] with any questions, . Assessment: Right knee osteoarthritis Procedures: Right total knee arthroplasty Patient Condition at Discharge: Good Plan - Discharge Summary Discharge Rx Participant: No New Discharge Prescriptions: New Apixaban [Eliquis] 2.5 mg PO BID #60 tab oxyCODONE-APAP 5-325MG [Percocet 5-325 mg] 1 tab PO Q6HR PRN #28 tab PRN Reason: Pain hydrOXYzine pamoate [Vistaril] 25 mg PO TID #21 capsule Sennosides/Docusate Sodium [Senna Plus 8.6-50 mg Softgel] 1 each PO DAILY #20 capsule No Action Anastrozole [Arimidex] 1 mg PO DAILY oxyBUTYnin chloride [Ditropan] 5 mg PO DAILY lisinopriL [Zestril] 10 mg PO QAM Metoprolol Tartrate [Lopressor] 50 mg PO HS Levothyroxine Sodium 100 mcg PO QAM oxyCODONE-APAP 5-325MG [Percocet 5-325 mg] 1 tab PO BID PRN PRN Reason: Pain DULoxetine HCL [Cymbalta] 60 mg PO DAILY Ibuprofen 800 mg PO DIRECTED PRN PRN Reason: Pain Unk Multi Vitamin 1 tab PO DAILY Otc Allergy Med 1 tab PO DAILY PRN PRN Reason: Allergy Symptoms Calcium Carbonate/Vitamin D3 [Calcium 600 mg-D3 20 mcg (800 unit)] 1 each PO DAILY Melatonin [Melatonin ER] 10 mg PO HS Fluticasone Nasal Egan [Flonase Nasal Egan] 1 - 2 spray EA NOSTRIL DAILY PRN PRN Reason: Congestion Discharge Medication List Anastrozole [Arimidex] 1 mg PO DAILY 12/31/17 [History] Metoprolol Tartrate [Lopressor] 50 mg PO HS 12/31/17 [History] lisinopriL [Zestril] 10 mg PO QAM 12/31/17 [History] oxyBUTYnin chloride [Ditropan] 5 mg PO DAILY 12/31/17 [History] Levothyroxine Sodium 100 mcg PO QAM 09/09/18 [History] oxyCODONE-APAP 5-325MG [Percocet 5-325 mg] 1 tab PO BID PRN 10/04/19 [History] Calcium Carbonate/Vitamin D3 [Calcium 600 mg-D3 20 mcg (800 unit)] 1 each PO DAILY 10/22/21 [History] DULoxetine HCL [Cymbalta] 60 mg PO DAILY 10/22/21 [History] Fluticasone Nasal Egan [Flonase Nasal Egan] 1 - 2 spray EA NOSTRIL DAILY PRN 02/19/24 [History] Ibuprofen 800 mg PO DIRECTED PRN 02/19/24 [History] Melatonin [Melatonin ER] 10 mg PO HS 02/19/24 [History] Otc Allergy Med 1 tab PO DAILY PRN 02/19/24 [History] Unk Multi Vitamin 1 tab PO DAILY 02/19/24 [History] Apixaban [Eliquis] 2.5 mg PO BID #60 tab 02/26/24 [Rx] Sennosides/Docusate Sodium [Senna Plus 8.6-50 mg Softgel] 1 each PO DAILY #20 capsule 02/26/24 [Rx] hydrOXYzine pamoate [Vistaril] 25 mg PO TID #21 capsule 02/26/24 [Rx] oxyCODONE-APAP 5-325MG [Percocet 5-325 mg] 1 tab PO Q6HR PRN #28 tab 02/26/24 [R x] Follow up Appointment(s)/Referral(s): Tc Casey, PAC [PHYSICIAN WELLNESS COACH] - 03/11/24 9:40 am [facility],Equipment [NON-STAFF] - As Needed (*Please call [facility] once home to arrange delivery of the Continuous Passive Motion (CPM) machine. ) Patient Instructions/Handouts: Knee Replacement (DC), Knee Replacement (GEN) Activity/Diet/Wound Care/Special Instructions: Orthopedic Discharge Instructions: 1. Wound care and infection precautions, keep incision dry and covered while showering, no lotions, creams, moisturizers. No soaking, pools, hot tubs. Do not scrub over incision. 2. Weight-bear as tolerated with walker / cane until follow-up. 3. Ice and elevate when necessary. Do not exceed 20 minutes per hour with ice pack. 4. Utilize compression sleeve until seen at first follow up appointment. 5. Pain meds and anticoagulants per prescription. 6. Pain medication has potential to cause constipation. Increase oral fluid and fiber intake. Contact primary care provider if you have not had a bowel movement within 48 hours after discharge. 7. No anti-inflammatory medication until discussed at first post operative visit, this including Motrin, Aleve, Mobic, Diclofenac. 8. Follow up in office at 2 weeks postop with Ben Berry PA-C / Tc Casey PA-C 9. Follow up with your primary care doctor 7-10 days after discharge. 10. Contact [facility] with any questions, . Keep incision clean, dry, intact. While showering, cover fusion tape with Saran wrap. Keep fusion tape on until follow-up appointment in office in 2 weeks. Discharge Disposition: HOME WITH HOME HEALTH SERVICES
--- NOTE | 2024-02-26 07:18 | P.PN ---
Subjective Progress Note Date: 02/26/24 Principal diagnosis: Right knee osteoarthritis Patient was seen at bedside this morning sitting up in bed with dressing present over right knee. Patient says she is hoping to go home later today. She says she did receive walker for home yesterday. She says she was feeling a little bit better yesterday evening getting up and bearing weight to the right lower extremity. Patient says she has not had a bowel yet, however, patient says she has been passing gas. Patient says she has been urinating since surgery without issue. Patient denies chest pain, fever, shortness of breath, nausea, vomiting, change in vision, loss of bowel/bladder control. Objective - Vital Signs Vital signs: Vital Signs Temp 98.4 F 02/26/24 02:40 Pulse 73 02/26/24 02:40 Resp 18 02/26/24 02:40 BP 96/61 02/26/24 02:40 Pulse Ox 95 02/26/24 02:40 FiO2 Intake & Output 02/25/24 02/26/24 02/26/24 18:59 06:59 18:59 Other: Voiding Method Toilet Toilet # Voids 3 3 # Bowel Movements 1 - Exam Right knee: Incision is clean, dry, and intact. The exofin fusion tape is in good condition. There is minimal soft tissue swelling and ecchymosis surrounding the medial and lateral aspects of the incision. Calf is soft, no tenderness with palpation. Plantar flexion, dorsiflexion, EHL, FHL are intact. Sensory exam to light touch throughout the extremity is intact, dorsal pedis pulses 2+. - Labs CBC & Chem 7: 02/25/24 05:46 Labs: Abnormal Lab Results - Last 24 Hours (Table) 02/25/24 Range/Units 05:46 WBC 17.56 H (4.50-10.00) X 10*3/uL RBC 3.75 L (4.10-5.20) X 10*6/uL Hgb 11.5 L (12.0-15.0) g/dL Hct 35.9 L (37.2-46.3) % Immature Gran # 0.07 H (0.00-0.04) X 10*3/uL Neutrophils # 15.26 H (1.80-7.70) X 10*3/uL Monocytes # 1.23 H (0.20-1.00) X 10*3/uL Eosinophils # 0 L (0.04-0.35) X 10*3/uL Assessment and Plan Assessment: 1. Right knee osteoarthritis -Postop day 2 status post right total knee arthroplasty Plan: 1. Right knee osteoarthritis -right total knee arthroplasty performed 02/24/2024. Patient stable at bedside this morning. Pain medication as needed. Walker present at bedside for home. Plan for discharge home today with health services. 2. Appreciate medical management 3. Pain management -oxycodone; Dilaudid only as necessary 4. DVT prophylaxis -Xarelto in hospital. Going home with Eliquis 5. GI prophylaxis -senna 6. PT/OT -weightbearing as tolerated with walker 7. Encourage incentive spirometer use 8. Discharge planning -plan for home with health services today Time with Patient: Less than 30
[2024-02-26] MEDS: HYDROcodone/APAP 7.5-325MG 1 EACH TAB PO PRN (08:32)
--- NOTE | 2024-02-26 09:25 | P.PN ---
Subjective Progress Note Date: 02/26/24 Feels better today, ambulating, no chest pain no abdominal pain was vomiting no dizziness. Remains afebrile. Knee pain improving Objective - Vital Signs Vital signs: Vital Signs Temp 98.4 F 02/26/24 02:40 Pulse 73 02/26/24 02:40 Resp 18 02/26/24 02:40 BP 96/61 02/26/24 02:40 Pulse Ox 95 02/26/24 02:40 FiO2 Intake & Output 02/25/24 02/26/24 02/26/24 18:59 06:59 18:59 Other: Voiding Method Toilet Toilet # Voids 3 3 # Bowel Movements 1 - Exam Constitutional: No acute distress, conversant, pleasant Eyes: Anicteric sclerae, moist conjunctiva, no lid-lag, PERRLA ENMT: NC/AT,Oropharynx clear, no erythema, exudates Neck:Supple, FROM, no masses, or JVD, No carotid bruits; No thyromegaly Lungs: Clear to auscultation, Clear to percussion, Normal respiratory effort, no accessory muscle use Cardiovascular: Heart regular in rate and rhythm, No murmurs, gallops, or rubs no peripheral edema Abdominal: Soft Nontender, nom distended, no guarding, no rebound or rigidity, Normoactive bowel sounds No hepatomegaly, No splenomegaly, No palpable mass No abdominal wall hernia noted Skin: Normal temperature, tone, texture, turgor, No induration No subcutaneous nodules, No rash, lesions, No ulcers Extremities:No digital cyanosis No clubbing, Pedal pulses intact and symmetrical Radial pulses intact and symmetrical Normal gait and station, No calf tenderness Psychiatric: Alert and oriented to person, place and time, Appropriate affect Intact judgement Neuro: Muscles Strength 5/5 in all 4 extremities, Sensation to light touch grossly present throughout, Cranial nerves II-XII grossly intact. No focal sensory deficits - Labs CBC & Chem 7: 02/25/24 05:46 Assessment and Plan Plan: Assessment and plan: 1. Chronic right knee pain: Status post right total knee arthroplasty, pain control as indicated, PT OT. Orthopedics following.Continue supportive care.Improving. 2. Objective sleep apnea on CPAP 3.Essential hypertension: Continue outpatient medications with metoprolol and lisinopril 4. Hypothyroidism: Continue Synthroid 5. Depression: Continue duloxetine 6. Morbid obesity: BMI 47, supportive care. 7. history of right-sided breast cancer: Continue anastrozole Thank you for the consultation we will follow with you Possible discharge later today
[2024-02-26 09:28] VITALS: BP 118/74; PULSE 72; TEMP 98.3
== END 2024-02-26 10:34 | disposition home health service (06) ==
LOC: OR 08:19 → 4SSUR 12:13
PROVIDERS: ADMIT Orthopaedic Surgery; ATTEND Orthopaedic Surgery
DX: M17.11 Unilateral primary osteoarthritis, right knee (principal); G89.18 Other acute postprocedural pain; I10 Essential (primary) hypertension; G47.30 Sleep apnea, unspecified; E03.9 Hypothyroidism, unspecified; Z90.721 Acquired absence of ovaries, unilateral; Z87.891 Personal history of nicotine dependence; Z85.3 Personal history of malignant neoplasm of breast; Z83.3 Family history of diabetes mellitus; Z82.49 Family history of ischemic heart disease and other diseases of the circulatory system; Z79.899 Other long term (current) drug therapy; Z79.811 Long term (current) use of aromatase inhibitors; Z68.42 Body mass index [BMI] 45.0-49.9, adult; F32.A Depression, unspecified; E66.01 Morbid (severe) obesity due to excess calories; G89.29 Other chronic pain
CPT/HCPCS: 97161; 64999; 64448; 85025; 85610 ×2; 73560; 27447; G0378 ×3; C1713 ×2; C1776; C1751; J2250; J1100; J0690 ×3; J2405; J2001; S0170 ×2; J1170 ×4; J2795; J2704; J2371

== ENCOUNTER → 2024-07-02 | Outpatient (CLI) | payer MEDICARE ==
--- NOTE | 2024-07-04 17:36 | MM ---
Reason for Exam: Additional evaluation requested from prior study. Last mammogram was performed 1 year(s) and 6 month(s) ago. Patient History: Menarche at age 12. First Full-Term at age 22. Right ovary removed at age 39. Postmenopausal. Breast cancer, right, age 55. Previous chest radiation therapy at age 55. Previous chemotherapy at age 55. 01/24/2016, Ultrasound-Guided Core Biopsy on the Right side. 2016, Lumpectomy on the Right side. Core Biopsy on the Right side. 11/12/2001, Benign Stereotactic Core Biopsy on the right side. Chemotherapy. Radiation Therapy, right. Prior Study Comparison: 04/24/2017 Screening Mammogram, Unknown. 08/05/2018 Bilateral Diagnostic Mammogram, PH. 08/22/2020 Bilateral Diagnostic Mammogram, PH. 10/17/2021 Bilateral Diagnostic Mammogram, PH. 01/06/2023 Bilateral MG 3D diag mammo w/cad ASHER, PH. Tissue Density: There are scattered areas of fibroglandular density. Findings: Analyzed By CAD. The pattern is stable. There is an oval density which appears slightly larger. Punctate calcifications are increasing in this region. The patient's lumpectomy site. Repeat biopsy at this level is recommended. Left breast:No suspicious groups of microcalcifications, spiculated or lobular masses, architectural distortion or other secondary signs of malignancy are mammographically apparent. Overall Assessment: Suspicious, BI-RAD 4 Management: Surgical Consultation of the right breast. Stereotactic Core Biopsy of the right breast. A negative mammogram report should not preclude additional follow up of suspicious palpable abnormalities. Patient should continue monthly self breast exam. A clinical breast exam by your physician is recommended on an annual basis and results should be correlated with mammographic findings. Note on Indu scores and lifetime risk: 1. A Indu score greater than 3% is considered moderate risk. If this is the case, consider specialist referral to assess eligibility for a risk reducing agent. 2. If overall lifetime risk for the development of breast cancer is 20% or higher, the patient may qualify for future screening with alternating mammogram and breast MRI. [facility], , 07/04/2024 5:33 PM. Electronically signed and approved by: Cristian Whitmore D.O. Radiologis
== END | disposition home or self-care (01) ==
LOC: RADMAMWWP 10:41
PROVIDERS: ATTEND Internal Medicine
DX: C50.911 Malignant neoplasm of unspecified site of right female breast (principal); R92.323 Mammographic fibroglandular density, bilateral breasts; Z78.0 Asymptomatic menopausal state
CPT/HCPCS: 77066; G0279; 77062

== ENCOUNTER → 2024-07-30 | Day surgery (SDC) | payer MEDICARE ==
[~2024-07-30] MED LIST changes: +ALPRAZolam 0.25 MG TAB PO PRN; +ALPRAZolam 0.5 MG TAB PO PRN; -TRANEXAMIC 1,000 MG/100ML-NACL 1,000 MG in SALINE 1 100ML.BAG IVPB PRN
[2024-07-30 07:31] VITALS: RESP 16
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
--- NOTE | 2024-07-30 08:53 | P.BCAON ---
Date of Procedure: 07/30/24 Preoperative Diagnosis: Right breast mammographic abnormality/microcalcifications Postoperative Diagnosis: Same Procedure(s) Performed: Right breast stereotactic core biopsy Anesthesia: local Surgeon: Tonya Carlos Pathology: other (Breast tissue with microcalcifications of concern noted in specimen) Condition: stable Disposition: same day Indications for Procedure: Prior lumpectomy right breast with increasing microcalcifications at lumpectomy site Operative Findings: Radiograph of specimen reveals microcalcifications of concern in specimen Description of Procedure: The patient is a 63-year-old female status post right breast lumpectomy approximately 7 years ago in [place] for an invasive cancer. She is uncertain as to the stage or type of cancer. She on a routine screening mammogram was noted to have increasing microcalcifications at the lumpectomy site. Stereotactic core biopsy was recommended. The risk and benefits of the procedure were discussed with the patient. And she agreed to the procedure. The patient was brought to the stereotactic core biopsy room. She was positioned in the upright chair. A bed and breakfast innkeeper film was obtained with a CC from above approach utilized. The area of concern was identified. The lesion was tar geted. The breast was prepped using chlorhexidine. 20 cc of 1% lidocaine were used to anesthetize the area of concern. 10 cc with an addition of 2 cc of sodium bicarbonate of plain lidocaine were used as well as 10 cc of lidocaine with epinephrine. The area was anesthetized. A 9 gauge vacuum-assisted core rotating biopsy needle was driven to the correct coordinates. A prefire film was obtained. The needle was noted to be in the correct location. The needle was fired. A post fire film was performed. The needle was noted to be in the correct location. 12 core specimens were obtained. Radiograph of the specimens revealed microcalcifications of concern. A secure eleonora Top-Hat clip was deployed. The clip appeared to be in the correct location. The patient tolerated the procedure in stable condition. She will follow-up with Dr. Johns in 1 week the specimen was sent to pathology.
[2024-07-30 09:05] VITALS: BP 118/76; PULSE 65; TEMP 98.2
--- NOTE | 2024-08-02 14:37 | MM ---
Date of Procedure: 07/30/24 Preoperative Diagnosis: Right breast mammographic abnormality/microcalcifications Postoperative Diagnosis: Same Procedure(s) Performed: Right breast stereotactic core biopsy Anesthesia: local Surgeon: Tonya Carlos Pathology: other (Breast tissue with microcalcifications of concern noted in specimen) Condition: stable Disposition: same day Indications for Procedure: Prior lumpectomy right breast with increasing microcalcifications at lumpectomy site Operative Findings: Radiograph of specimen reveals microcalcifications of concern in specimen Description of Procedure: The patient is a 63-year-old female status post right breast lumpectomy approximately 7 years ago in [place] for an invasive cancer. She is uncertain as to the stage or type of cancer. She on a routine screening mammogram was noted to have increasing microcalcifications at the lumpectomy site. Stereotactic core biopsy was recommended. The risk and benefits of the procedure were discussed with the patient. And she agreed to the procedure. The patient was brought to the stereotactic core biopsy room. She was positioned in the upright chair. A job hand film was obtained with a CC from above approach utilized. The area of concern was identified. The lesion was targeted. The breast was prepped using chlorhexidine. 20 cc of 1% lidocaine were used to anesthetize the area of concern. 10 cc with an addition of 2 cc of sodium bicarbonate of plain lidocaine were used as well as 10 cc of lidocaine with epinephrine. The area was anesthetized. A 9 gauge vacuum-assisted core rotating biopsy needle was driven to the correct coordinates. A prefire film was obtained. The needle was noted to be in the correct location. The needle was fired. A post fire film was performed. The needle was noted to be in the correct location. 12 core specimens were obtained. Radiograph of the specimens revealed microcalcifications of concern. A secure eleonora Top-Hat clip was deployed. The clip appeared to be in the correct location. The patient tolerated the procedure in stable condition. She will follow-up with Dr. Johns in 1 week the specimen was sent to pathology. [facility]
== END ==
LOC: RADMAMWWP 07:14
PROVIDERS: ATTEND Surgery
DX: R92.1 Mammographic calcification found on diagnostic imaging of breast (principal); I10 Essential (primary) hypertension; E03.9 Hypothyroidism, unspecified; Z88.1 Allergy status to other antibiotic agents; Z85.3 Personal history of malignant neoplasm of breast; Z79.890 Hormone replacement therapy; Z79.899 Other long term (current) drug therapy
CPT/HCPCS: 19081; A4648; J2003; 88305

== ENCOUNTER → 2024-08-06 | Outpatient (CLI) | payer MEDICARE ==
[2024-08-06 08:32] VITALS: BP 139/62; PULSE 61; RESP 18; TEMP 97.9
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
== END ==
LOC: WWCWWP 08:06
PROVIDERS: ATTEND Surgery
DX: R92.8 Other abnormal and inconclusive findings on diagnostic imaging of breast (principal); R92.0 Mammographic microcalcification found on diagnostic imaging of breast; I10 Essential (primary) hypertension; E03.9 Hypothyroidism, unspecified; Z85.3 Personal history of malignant neoplasm of breast; Z92.3 Personal history of irradiation; Z87.891 Personal history of nicotine dependence; Z88.0 Allergy status to penicillin; Z88.1 Allergy status to other antibiotic agents; Z79.899 Other long term (current) drug therapy; Z79.51 Long term (current) use of inhaled steroids

== ENCOUNTER → 2024-09-24 | Outpatient (CLI) | payer MEDICARE ==
[2024-09-24 14:21] LABS: Basophils # (A) 0.1 k/uL (0-0.2); Basophils % (A) 1 %; Eosinophils # (A) 0.9 k/uL (0-0.7); Eosinophils % (A) 8 %; HCT 39.9 % (34.0-46.0); HGB 13.2 gm/dL (11.4-16.0); Lymphocytes # (A) 2.1 k/uL (1.0-4.8); Lymphocytes % (A) 20 %; MCH 30.4 pg (25.0-35.0); MCHC 33.1 g/dL (31.0-37.0); MCV 91.9 fL (80.0-100.0); Mean Platelet Volume 7.9; Monocytes # (A) 0.4 k/uL (0-1.0); Monocytes % (A) 4 %; Neutrophils # (A) 6.8 k/uL (1.3-7.7); Neutrophils % (A) 66 %; Platelet Count 384 k/uL (150-450); RBC 4.34 m/uL (3.80-5.40); RDW 13.5 % (11.5-15.5); WBC 10.4 k/uL (3.8-10.6)
[2024-09-24 14:36] LABS: ALT 24 U/L (4-34); AST 23 U/L (14-36); African American GFR (CKD) 61 (>60 ml/min/1.73 sqM); Albumin 4.1 g/dL (3.5-5.0); Alkaline Phosphatase 83 U/L (38-126); Anion Gap 12 mmol/L; Blood Urea Nitrogen 30 mg/dL (7-17); Calcium 10.7 mg/dL (8.4-10.2); Carbon Dioxide 20 mmol/L (22-30); Chloride 108 mmol/L (98-107); Glucose 94 mg/dL (74-99); Non-African American GFR(CKD) 53 (>60 ml/min/1.73 sqM); Potassium 4.7 mmol/L (3.5-5.1); Sodium 140 mmol/L (137-145); Total Bilirubin 0.5 mg/dL (0.2-1.3); Total Protein 6.6 g/dL (6.3-8.2)
[2024-09-24 15:57] LABS: T4, Free (Free Thyroxine) 1.46 ng/dL (0.78-2.19)
[2024-09-25 03:19] LABS: Chol/HDL Ratio 3.65 Ratio; LDL Cholesterol,Calculated 142.8 mg/dL (0.0-131.0)
== END | disposition home or self-care (01) ==
LOC: LABT 13:05
PROVIDERS: ATTEND Internal Medicine
DX: Z00.00 Encounter for general adult medical examination without abnormal findings (principal); E03.9 Hypothyroidism, unspecified; E55.9 Vitamin D deficiency, unspecified; N18.31 Chronic kidney disease, stage 3a
CPT/HCPCS: 80053; 80061; 82306; 83970; 84439; 84443; 85025